=== PATIENT | female | born 1940 | race Caucasian/White ===

== ENCOUNTER 2017-01-20 15:59 | Inpatient (IN) | payer OTHER ==
--- NOTE | ~2017-01-20 | EKG ---
PATIENT: CHEYENNE OSBORN UNIT #: [id number] Ventricular Rate: 104 BPM Atrial Rate: 131 BPM QRS Duration: 76 ms Q-T Interval: 342 ms QTC Calculation(Bezet): 449 ms Calculated R [place]: -15 degrees Calculated T [place]: 100 degrees Diagnosis Line: Atrial fibrillation with rapid ventricular Diagnosis Line: response with premature ventricular or aberrantly Diagnosis Line: conducted complexes Diagnosis Line: Low voltage QRS Diagnosis Line: Cannot rule out Anteroseptal infarct (cited on or Diagnosis Line: before 20-JAN-2017) Diagnosis Line: Abnormal ECG Diagnosis Line: When compared with ECG of 14-NOV-2012 13:16, Diagnosis Line: Atrial fibrillation has replaced Sinus rhythm Diagnosis Line: Questionable change in initial forces of Anterior Diagnosis Line: leads Diagnosis Line: Nonspecific T wave abnormality now evident in Diagnosis Line: Lateral leads Diagnosis Line: Confirmed by RUDOLPH HAYS MD ([id number]) on 01/20/2017 Diagnosis Line: 4:17:31 PM INTERPRETING MD: SAÚL KEEN
--- NOTE | ~2017-01-20 | CT71 ---
[facility] A Service of [facility] RADIOLOGY TEXT RESULTS PATIENT: CHEYENNE OSBORN LOCATION: C5 [address] : 38 UNIT #: [id number] AGE: [address]: Rai Smith MD SEX: F ORDER DR: [id number] [facility] [address] [place], [place] [address] [id number] I MR#: [id number] Acc #: [id number] NAME: CHEYENNE OSBORN : 1940 SEX: F STUDY DATE/TIME: 01/20/2017 14:45 UNIT: CEDOF ROOM: 51125 STUDY DESCRIPTION: CT Head Wo Contrast Attending Physician: Rai Smith M.D. Ordering Physician: Raz Ames M.D. Primary Care Physician: Dottie Chavez M.D. MEDICAL IMAGING REPORT This report is preliminary unless electronic signature is present EXAM CT brain without contrast media. DATE OF EXAM 01/20/2017 COMPARISON 09/02/2011 HISTORY SUPPLIED Confused, disoriented and lethargic for 2 days. TECHNIQUE Transaxial imaging of the brain was performed without contrast media. NOTE: This CT exam was performed with one or more of the following radiation dose reduction techniques: automatic exposure control, adjustment of mA and/or kV according to patient size, and iterative reconstruction. FINDINGS There is generalized enlargement of the ventricles and CSF-containing spaces, not unusual for this patient's age and is certainly unchanged from the patient's previous study of 2010. No intra or extraaxial mass lesions, fluid collections or mass effect are seen. No focal areas of low attenuation or evidence of acute intracranial hemorrhage. There is chronic inflammatory disease within the sphenoid air cells. CONCLUSION 1. Generalized atrophy. No acute intracranial findings. 2. Chronic-appearing sphenoid sinus disease. Dictated by... Justin Ghotra M.D. [facility] A Service of [facility] RADIOLOGY TEXT RESULTS PATIENT: CHEYENNE OSBORN LOCATION: [facility] [address] : 38 UNIT #: [id number] AGE: [address]: Rai Smith MD SEX: F ORDER DR: THIS IS AN ELECTRONICALLY VERIFIED REPORT Justin Ghotra M.D. at 01/21/2017 2:53 PM ANTOINETTE/winston TD: 01/20/2017 19:08 JOB #: [id number] MEDICAL IMAGING REPORT COPY
--- NOTE | ~2017-01-20 | HP ---
Unit #: [id number] #: [id number] Patient: CHEYENNE OSBORN [id number] [address] [address] [id number] I MR#: [id number] NAME: CHEYENNE OSBORN ROOM: 567 Age: 76 Sex: F Admission Date: 01/20/2017 : 1940 Attending Physician: Rai Smith M.D. Primary Care Physician: Dottie Chavez M.D. HISTORY AND PHYSICAL DIAGNOSES ON ADMISSION 1. Acute urinary tract infection. 2. History of altered mental status. 3. Sepsis. HISTORY OF PRESENT ILLNESS 76-year-old female was transferred from [facility] with altered mental status. The patient is currently confused and not able to provide history. History was obtained from the nursing facility records. As per facility records, patient was very sleep and very confused. She woke up this morning and ate breakfast and took her medications and then she became sluggish. Because of her increased confusion and lethargy, it was decided to transfer her to the hospital. In the hospital, the patient was diagnosed with atrial fibrillation with rapid ventricular rate and acute UTI, possible pneumonia and it was decided to admit her. There is no history of chest pain. The patient is complaining of shortness of air. She is hard of hearing. She is confused to time. Patient is unable to provide reliable history; therefore, unable to do review of systems. PAST MEDICAL HISTORY 1. Hypertension. 2. Hyperlipidemia. 3. Gastroesophageal reflux disease. 4. Diverticulosis. 5. Hypothyroidism. 6. Irritable bowel syndrome. 7. CHF. 8. History of pacemaker. PAST SURGICAL HISTORY 1. Appendectomy. 2. Parathyroid surgery. 3. Hysterectomy. 4. Cholecystectomy. 5. Bladder surgery. 6. Back surgery. ALLERGIES The patient is allergic to multiple medications including iodine, IV dye, salicylates, tetracycline, sulfa drugs, macrolide, barium sulfate, Unit #: [id number] #: [id number] Patient: CHEYENNE OSBORN aspirin, erythromycin. SOCIAL HISTORY Patient is resident of [facility]. There is no history of smoking or drinking. FAMILY HISTORY As per old records, is positive for coronary artery disease and cancer. PHYSICAL EXAMINATION GENERAL: Patient is lying in bed, is pleasantly confused. Is not in any obvious acute distress. HEENT: No conjunctival congestion. Sclerae is not icteric. NECK: Supple. Trachea is central. RESPIRATORY EXAMINATION: Decreased breath sounds bilaterally. A few crackles present on both bases. HEART: Tachycardic and regular. S1, S2. ABDOMEN: Soft, obese. No obvious tenderness. EXTREMITIES: Patient had right lower extremity ulcer and erythema present. Patient had left extremity edema present. SKIN: Warm and dry. DIAGNOSTIC STUDIES LABORATORY: Labs on admission - patient's creatinine is 1.1, sodium 137, potassium is 5.0. AST and ALT within normal limits. Troponin is less than 0.05. WBC 6.8, hemoglobin is 11.1, platelet count is 163. Urine drug screen was negative. UA revealed 5 to 10 WBCs. Ammonia level was 43, lactic level was 1.2. CARDIOVASCULAR: EKG revealed atrial fibrillation. (1) 1 and 4. ASSESSMENT AND PLAN 76-year-old patient presented to the hospital with shortness of air and lethargy. 1. Sepsis. 2. Possible pneumonia: Patient's CT scan of chest has revealed opacity on the lower lobes. CT scan of abdomen was negative as per preliminary report. Therefore, patient is being treated with IV Rocephin. I will request Dr. Yao to see patient in consultation. 3. Acute urinary tract infection: Will do urine culture. Patient is on antibiotics. 4. Atrial fibrillation: Patient's rate is 104. She did not take her Cardizem in the facility. We will resume patient's home medication. 5. Patient is status post pacemaker. 6. Type 2 diabetes mellitus: Will do serial Accu-Cheks and will start patient on insulin sliding scale. 7. We will start patient on Protonix. 8. Patient is on Xarelto at home. We will continue patient's Xarelto. She is also on sotalol. Will continue that. 9. I will try to call patient's family. 10. Patient's overall prognosis is guarded. Patient has a state guardian as a legal guardian as per staff. Unit #: [id number] #: [id number] Patient: CHEYENNE OSBORN Dictated by Halle Eaton TD: 01/21/2017 07:58 JOB #: [id number] HISTORY AND PHYSICAL X Rai Smith MD HISTORY AND PHYSICAL
--- NOTE | ~2017-01-20 | CO ---
Unit #: [id number] #: [id number] Patient: CHEYENNE OSBORN [id number] [address] [address] [id number] I MR#: [id number] NAME: CHEYENNE OSBORN ROOM: 567 Age: 76 Sex: F Admission Date: 01/20/2017 : 1940 Attending Physician: Rai Smith M.D. Primary Care Physician: Dottie Chavez M.D. Consultation Date: 01/21/2017 CONSULTATION REPORT REASON FOR CONSULTATION Pneumonia. CHIEF COMPLAINT Cough and shortness of breath. HISTORY OF PRESENT ILLNESS Patient basically is a 76-year-old female with past medical history significant for obstructive sleep apnea, hypertension, dyslipidemia, diverticulosis, irritable bowel syndrome, congestive heart failure, history of pacemaker placement. Presents with the complaint of confusion, lethargy and was found to be short of breath. CT of the chest showed pneumonia. I am seeing her at the bedside complaining of shortness of breath. REVIEW OF SYSTEMS Positive pallor. No edema. No cyanosis. No jaundice. Rest is as per history of present illness. The rest of a 12-point review of systems has been reviewed and is negative. PAST MEDICAL HISTORY 1. Hypertension. 2. Dyslipidemia. 3. Gastroesophageal reflux disease. 4. Diverticulosis. 5. Hypothyroidism. 6. Irritable bowel syndrome. 7. CHF. 8. History of pacemaker placement. 9. Appendectomy. 10. Parathyroid surgery. 11. Hysterectomy. 12. Cholecystectomy. 13. Bladder surgery. 14. Back surgery. ALLERGIES Sulfa, tetracycline, IV dye, salicylate, barium, macrolide, aspirin, Erythromycin. SOCIAL HISTORY No history of smoking or drinking. FAMILY HISTORY Unit #: [id number] #: [id number] Patient: CHEYENNE OSBORN Positive for coronary artery disease and cancer. PHYSICAL EXAMINATION VITAL SIGNS: Temperature 98, pulse rate 70, respirations 12, blood pressure 130/70. NEUROLOGIC: Awake, alert and oriented. No neuro deficits. HEENT: PERRLA. EOMI. NECK: Supple. No JVD. CHEST: Bilateral air entry. Bilateral rhonchi. GI: Nontender. Soft. Bowel sounds positive. EXTREMITIES: No edema. SKIN: No rashes, no ulcer. LYMPHATIC: No lymphadenopathy. ASSESSMENT 1. Pneumonia. 2. Sepsis. 3. Urinary tract infection. 4. Atrial fibrillation. 5. History of pacemaker placement. 6. Likely obstructive sleep apnea. 7. Diabetes mellitus. PLAN Plan is to continue the patient on IV antibiotic, Rocephin. Continue anticoagulation. GI and DVT prophylaxis. Bronchodilator. Follow sputum culture. Order procalcitonin level. BiPAP at night. The patient will be closely monitored. Please see orders for detailed plan. Dictated by... Halle Temple/elton TD: 01/22/2017 13:19 JOB #: [id number] CONSULTATION REPORT X Zeenat Yao MD CONSULTATION REPORT
--- NOTE | ~2017-01-20 | CT4 ---
[facility] A Service of [facility] RADIOLOGY TEXT RESULTS PATIENT: CHEYENNE OSBORN LOCATION: [facility] 567-01 : 38 UNIT #: [id number] AGE: [address]: Rai Smith MD SEX: F ORDER DR: [id number] [facility] [address] [place], [place] [address] [id number] I MR#: [id number] Acc #: [id number] NAME: CHEYENNE OSBORN : 1940 SEX: F STUDY DATE/TIME: 01/20/2017 14:51 UNIT: CEDOF ROOM: 12975 STUDY DESCRIPTION: CT Abd and Pelv Wo Cont Attending Physician: Rai Smith M.D. Ordering Physician: Raz Ames M.D. Primary Care Physician: Dottie Chavez M.D. MEDICAL IMAGING REPORT This report is preliminary unless electronic signature is present EXAM CT of the abdomen and pelvis without contrast media. DATE OF EXAM 01/20/2017 HISTORY SUPPLIED Abdominal distension, shortness of breath for 2 days. TECHNIQUE Axial imaging of the abdomen and pelvis was performed without contrast media. NOTE: This CT exam was performed with one or more of the following radiation dose reduction techniques: automatic exposure control, adjustment of mA and/or kV according to patient size, and iterative reconstruction. COMPARISON The studies compared to that of October 24, 2013. FINDINGS The leads are present in the lung bases, in the right atrium and ventricle. There are small bilateral pleural effusions and basilar atelectasis. There is a small amount of ascites present. This is primarily perisplenic, and in the left pericolic gutter, but probably is positional. There is a small amount of right-sided perihepatic fluid. Redemonstrated is a nodular liver suggesting underlying chronic liver disease. Spleen is not enlarged. The gallbladder is not identified, and presumably absent. Right and left kidney are unremarkable. There is some very mild and subtle soft tissue stranding in the mesentery. The pancreas is largely atrophic. Patient does have anasarca which is new. The uterus is absent. No pelvic masses are seen. There is diverticulosis without diverticulitis. [facility] A Service of [facility] & [facility] RADIOLOGY TEXT RESULTS PATIENT: CHEYENNE OSBORN LOCATION: C5C 567-01 : 38 UNIT #: [id number] AGE: [address]: Rai Smith MD SEX: F ORDER DR: CONCLUSION 1. Bilateral pleural effusions with basilar atelectasis. 2. Cirrhotic-appearing liver unchanged. 3. Postop changes of prior cholecystectomy and hysterectomy. 4. Ascites. Predominantly perisplenic and in the left pericolic gutter which I think is probably related to position. There clearly is some perihepatic fluid as well. 5. Diffuse anasarca with some increased density in the mesentery which I think is also related more to anasarca. 6. Diverticulosis. No evidence of acute diverticulitis. Dictated by... Justin Ghotra M.D. THIS IS AN ELECTRONICALLY VERIFIED REPORT Justin Ghotra M.D. at 01/21/2017 2:53 PM ANTOINETTE/winston TD: 01/20/2017 19:58 JOB #: [id number] MEDICAL IMAGING REPORT COPY
--- NOTE | ~2017-01-20 | CT57 ---
[facility] A Service of [facility] RADIOLOGY TEXT RESULTS PATIENT: CHEYENNE OSBORN LOCATION: [facility] 567-01 : 38 UNIT #: [id number] AGE: [address]: Rai Smith MD SEX: F ORDER DR: [id number] [facility] [address] [place], [place] [address] [id number] E MR#: [id number] #: [id number] NAME: CHEYENNE OSBORN : 1940 SEX: F STUDY DATE/TIME: 01/20/2017 14:51 UNIT: [facility] ROOM: STUDY DESCRIPTION: CT Chest Wo Cont Attending Physician: Dalton Roe M.D. Ordering Physician: Raz Ames M.D. Primary Care Physician: Dottie Chavez M.D. MEDICAL IMAGING REPORT This report is preliminary unless electronic signature is present EXAM CT chest without contrast 01/20/2017 INDICATIONS Confusion and disorientation. Lethargy. Shortness of air for the past [address] of the chest. This CT exam was performed with one or more of the following radiation dose reduction techniques: automatic exposure control, adjustment of mA and/or kV according to patient size, and iterative reconstruction. COMPARISON 11/12/2016 FINDINGS Opacities in the left lung base are similar to the previous study. Opacity in the right lung base is minimally increased. These opacities could represent atelectasis or infiltrate. Nodular density right apex is stable. Nodular density in the right lower lobe is obscured by new atelectasis. There is no pneumothorax or pleural fluid. Large cardiomegaly. No adenopathy. There is anterior bowing of the posterior tracheal wall as well as some flattening of the right and left main bronchus. Suspect a nondisplaced fracture of the left twelfth rib. There is also some new irregularity of the posteromedial left eleventh rib. IMPRESSION 1. Persistent opacities in the left lung base with slightly increasing opacity in the right lower lobe. It is most in keeping with atelectasis. Correlate for the possibility of pneumonia. 2. Nodular densities in the apex is unchanged and the 1 in the right STS. [facility] A Service of [facility] RADIOLOGY TEXT RESULTS PATIENT: CHEYENNE OSBORN LOCATION: C5C 567-01 : 38 UNIT #: [id number] AGE: [address]: Rai Smith MD SEX: F ORDER DR: lower lobe is obscured by atelectasis. 3. Findings suggesting tracheobronchial malacia. 4. Cardiomegaly. 5. Suspected nondisplaced fracture of the left twelfth rib and irregularity in the posteromedial left eleventh rib which may also reflect changes of fracture. These are new compared with the previous CT. 6. Refer to the separately dictated abdomen and pelvis CT for findings below the diaphragm. Dictated by... Luis Carlos Weiner M.D. THIS IS AN ELECTRONICALLY VERIFIED REPORT Luis Carlos Weiner M.D. at 01/21/2017 7:05 AM Liz TD: 01/20/2017 18:54 JOB #: [id number] MEDICAL IMAGING REPORT COPY
--- NOTE | ~2017-01-20 | DS ---
Unit #: [id number] #: [id number] Patient: CHEYENNE OSBORN [id number] [address] [address] [id number] I MR#: [id number] NAME: CHEYENNE OSBORN ROOM: 567 Age: 76 Sex: F Admission Date: 01/20/2017 : 1940 Discharge Date: Attending Physician: Rai Smith M.D. Primary Care Physician: Dottie Chavez M.D. DISCHARGE SUMMARY PRIMARY DIAGNOSIS Pneumonia, possible. SECONDARY DIAGNOSES 1. Escherichia coli urinary tract infection. 2. Acute respiratory failure, improved. 3. Anasarca. 4. Cirrhosis. 5. Morbid obesity. 6. Sepsis secondary to urinary tract infection and possibly related to pneumonia. 7. Possible 12th rib fracture. 8. Bilateral pleural effusions. HOSPITAL COURSE The patient was admitted to the hospital and was noted to be chronically weak and is chronically needs significant assistance for physical therapy at her rehab facility. Her urine grew out E coli, which is resistant to Levaquin and there was suspicion of a possible infiltrate on her chest x-ray, although, she had no fever and no elevation in her white blood cell count. She was seen by Pulmonology and she was continued on Rocephin both for her UTI and her possible pneumonia. Procalcitonin level was fairly low at 0.09. The patient will continue on Omnicef for an additional 6 days. The patient also had CT scanning of the abdomen and pelvis while she was here, which showed some chronic cirrhosis and unchanged compared to previous imaging and ascites as well as diffuse anasarca. She was started on scheduled Lasix to assist with this. DISCHARGE DISPOSITION Back to her long-term care/rehab. DISCHARGE STATUS Stable. DISCHARGE ACTIVITY With assistance only. DISCHARGE DIET Diabetic 2 g sodium per day, maximum 2000 calorie per day maximum diet. FOLLOWUP Unit #: [id number] #: [id number] Patient: CHEYENNE OSBORN Follow up is with her PCP in 2 to 4 weeks. Consultants during this hospitalization include Dr. Yao with Pulmonology. Dictated by... Ren Segovia M.D. REZA/peggy TD: 01/24/2017 01:15 JOB #: [id number] DISCHARGE SUMMARY X Ren Segovia MD X DISCHARGE SUMMARY
--- NOTE | ~2017-01-20 | DS ---
Unit #: [id number] #: [id number] Patient: CHEYENNE OSBORN [id number] [address] [address] [id number] I MR#: [id number] NAME: CHEYENNE OSBORN ROOM: 241 Age: 76 Sex: F Admission Date: 01/20/2017 : 1940 Discharge Date: 01/27/2017 Attending Physician: Elsie Velez M.D. Primary Care Physician: Dottie Chavez M.D. DISCHARGE SUMMARY ADDENDUM DISCHARGE DIAGNOSES Please add: 1. Dementia. 2. Morbid obesity. 3. Chronic hypoxic respiratory failure maintained on 2 liters of oxygen per nasal cannula continuously. 4. Pneumonia. 5. Severe deconditioning. HOSPITAL COURSE Patient remained stable since last dictation. She was changed to oral Omnicef for her pneumonia and UTI and has been doing well. Unfortunately, she is significantly deconditioned even in the short period in which she was here and will be transitioned to rehab with plans to transition to long-term care. I will note patient has chronic hypoxia as noted on prior discharge summary and should be maintained on 2 liters of oxygen per nasal cannula continuously. DISCHARGE CONDITION Stable. DISCHARGE STATUS Discharged to rehab. DISCHARGE MEDICATIONS Per med rec. Patient will complete a course of Omnicef on January 28, 2017. Otherwise, meds are as noted. DISCHARGE INSTRUCTIONS Also as previously noted. She can increase her activity as tolerated. Dictated by... Elsie Velez M.D. TALAT/jaqui TD: 01/28/2017 10:42 JOB #: [id number] Unit #: [id number] #: [id number] Patient: CHEYENNE OSBORN DISCHARGE SUMMARY Page 1 of 1 X Elsie Velez MD X DISCHARGE SUMMARY
--- NOTE | ~2017-01-20 | DS ---
Unit #: [id number] #: [id number] Patient: CHEYENNE OSBORN [id number] [address] [address] [id number] I MR#: [id number] NAME: CHEYENNE OSBORN ROOM: 567 Age: 76 Sex: F Admission Date: 01/20/2017 : 1940 Discharge Date: Attending Physician: Rai Smith M.D. Primary Care Physician: Dottie Chavez M.D. DISCHARGE SUMMARY ADDENDUM The patient's diagnosis of acute hypoxemic respiratory failure should be changed to acute on chronic hypoxemic respiratory failure. The patient is chronically on 2 L of oxygen by nasal cannula per my discussion with the RN at [facility]. 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 Dictated by... Halle Alanis/belia TD: 01/24/2017 12:36 JOB #: [id number] DISCHARGE SUMMARY X Ren Segovia MD X DISCHARGE SUMMARY
[2017-01-20 14:38] LABS: BASOPHIL% 0.6 % (0-2.5); EOSINOPHIL# 0.1 X10e3 (0-0.7); EOSINOPHIL% 2.1 % (0.0-7.0); HEMATOCRIT 35.5 % (35.0-45.0); HEMOGLOBIN 11.1 gm/dL (12.0-16.0); LYMPHOCYTE# 0.7 X10e3 (1.0-3.5); LYMPHOCYTE% 10.7 % (17.0-45.0); MEAN CELL VOLUME 87.1 FL (83-96); MEAN CORPUSCULAR HEMOGLOBIN 27.1 PG (28-34); MEAN CORPUSCULAR HGB CONC 31.2 g/dL (30-36); MEAN PLATELET VOLUME 8.4 FL (6.5-11.5); MONOCYTE# 0.6 X10e3 (0-1.0); MONOCYTE% 8.5 % (3.0-12.0); NEUTROPHIL# 5.3 X10e3 (1.5-7.1); NEUTROPHIL% 78.1 % (40-75); PLATELET COUNT 163 X10e3 (140-420); RED BLOOD COUNT 4.08 X10e (3.90-5.30); RED CELL DISTRIBUTION WIDTH 16.1 % (11.0-15.5); WHITE BLOOD COUNT 6.8 X10e3 (4.0-10.5)
[2017-01-20 14:39] LABS: DIFF IND NO
[2017-01-20 14:49] LABS: INR 1.8; PARTIAL THROMBOPLASTIN TIME 35.2 SECONDS (23.5-31.3); PROTHROMBIN TIME (PATIENT) 19.4 SECONDS (9.6-11.5)
[2017-01-20 15:03] LABS: ALBUMIN SERUM 3.3 g/dL (3.5-5.0); ALKALINE PHOSPHATASE 91 U/L (32-92); ALT (SGPT) 12 U/L (10-40); AST (SGOT) 17 U/L (10-42); BILIRUBIN, DIRECT 0.2 mg/dL (0.0-0.2); BILIRUBIN,INDIRECT 0.5 mg/dL (0.0-0.9); BILIRUBIN,TOTAL 0.7 mg/dL (0.2-2.0); BLOOD UREA NITROGEN 30 mg/dL (9-23); BUN/CREATININE RATIO 27.27; CALCIUM SERUM 9.5 mg/dL (8.4-10.2); CARBON DIOXIDE 26 mmol/L (22-31); CHLORIDE 105 mmol/L (100-111); CREATININE SERUM 1.1 mg/dL (0.6-1.4); GLOM FILT RATE Estimated 51.1 mL/min (>60); GLUCOSE FASTING 127 mg/dL (70-110); PROTEIN TOTAL SERUM 6.1 g/dL (6.0-8.3); SALICYLATE <4.0 mg/dL; SODIUM 137 mmol/L (135-145)
[2017-01-20 15:04] LABS: ACETAMINOPHEN <10 ug/mL; ALCOHOL BLOOD <5 mg/dL (0)
[2017-01-20 15:46] LABS: POC - CKMB 1.5 ng/mL (0.0-7.9); POC - TROPONIN <0.05 ng/mL (<=0.05)
[~2017-01-20 15:59] MED LIST: ACETAMINOPHEN PO; ADVAIR 250-501 EACH IH; BENTYL20 MG PO; CALCIUM + D 6001 TA1 PO; COLACE PO; CYMBALTA PO; DILAUDID4 MG PO; DIOVAN160 MG PO; FENTANYL1 EAC1 TD; FERROUS SULFATE1 TAB PO; FISH OIL 1,0001 CAP PO; GLUCOTROL10 MG PO; JANUVIA PO; LASIX20 MG PO; LEVOTHROID75 MCG PO; MAG-OX 400400 MG PO; MELADOX3 MG PO; MULTI-VITAMIN1 EAC1 PO; NEURONTIN PO; PRILOSEC PO; SOTALOL AF80 MG PO; VIIBRYD10 MG PO; VITAMIN B650 MG PO; VITAMIN C500 M5 PO; VITAMIN D35000 UNIT PO; XARELTO15 MG PO; [UNRECOGNIZED DRUG - OTHER]
[2017-01-20 16:02] LABS: URINE SOURCE CLEAN CATCH
[2017-01-20 16:06] LABS: URINE APPEARANCE CLEAR; URINE BILIRUBIN NEG (NEG); URINE BLOOD NEG (NEG); URINE COLOR YELLOW; URINE GLUCOSE NEG (NEG); URINE KETONE NEG (NEG); URINE LEUKOCYTE ESTERASE TRACE (NEG); URINE NITRATE NEG (NEG); URINE PH 5.5 (5-8); URINE PROTEIN 1+ (NEG); URINE SPECIFIC GRAVITY 1.034 (1.003-1.035)
[2017-01-20 16:09] LABS: CULTURE INDICATED? YES; URBCS1 AUWI 0-2 /[HPF] (0-2); URINE BACTERIA AUWI NEG (NEGATIVE); URINE SQUAMOUS EPITHELIAL CELL OCC /[HPF]
[2017-01-20 16:10] LABS: U HYALINE CASTS AUWI 0-2 /[LPF]
[2017-01-20 16:44] LABS: AMPHETAMINE NEG (NEG); BARBITURATES NEG (NEG); BENZODIAZEPINES NEG (NEG); COCAINE NEG (NEG); MARIJUANA NEG (NEG); OPIATES NEG (NEG); TRICYCLIC ANTIDEPRESSANTS NEG (NEG); U METHADONE NEG (NEG)
[2017-01-20] MEDS ORDERED: CARDIZEM CD120 M1 PO (18:31)
[2017-01-20] MEDS ORDERED: IPRATR-ALBUTEROL3 ML INH (18:41)
[2017-01-20] MEDS ORDERED: DULOXETINE HCL60 MG PO (18:42)
[2017-01-20] MEDS ORDERED: VITAMIN D250000 UNIT PO (18:42)
[2017-01-20] MEDS ORDERED: LANSOPRAZOLE30 M2 PO (18:45)
[2017-01-20] MEDS ORDERED: FLONASE ALLERG9.9 ML (18:45)
[2017-01-20] MEDS ORDERED: ACIDOPHILUS1 CA1 PO (18:46)
[2017-01-20] MEDS ORDERED: METHIMAZOLE5 MG PO (18:46)
[2017-01-20] MEDS ORDERED: XARELTO15 MG PO (18:46)
[2017-01-20] MEDS ORDERED: GAVILAX17 GM PO (18:47)
[2017-01-20] MEDS ORDERED: SYMBICORT 80-10.2 GM INH (18:48)
[2017-01-20] MEDS ORDERED: SOTALOL160 MG PO (18:48)
[2017-01-20] MEDS ORDERED: MIRAPEX1 MG PO (18:49)
[2017-01-20] MEDS ORDERED: MIRALAX17 G2 PO (18:50)
[2017-01-20] MEDS ORDERED: MILK OF MAGNESIA PO (18:51)
[2017-01-20] MEDS ORDERED: IPRAT-ALBUT 0.5-3 ML INH (18:52)
[2017-01-20] MEDS ORDERED: NOVOLOG100 UNITS/ TL (18:53)
[2017-01-20] MEDS ORDERED: MUPIROCIN0.9 GM (18:55)
[2017-01-20] MEDS ORDERED: NYSTATIN1 EAC1 TD (18:58)
[2017-01-20 19:11] LABS: POC - CKMB 1.1 ng/mL (0.0-7.9); POC - TROPONIN <0.05 ng/mL (<=0.05)
[2017-01-21 05:23] LABS: BASOPHIL% 0.7 % (0-2.5); EOSINOPHIL# 0.1 X10e3 (0-0.7); EOSINOPHIL% 2.2 % (0.0-7.0); HEMATOCRIT 35.9 % (35.0-45.0); HEMOGLOBIN 11.2 gm/dL (12.0-16.0); LYMPHOCYTE# 0.8 X10e3 (1.0-3.5); LYMPHOCYTE% 13.2 % (17.0-45.0); MEAN CELL VOLUME 87.5 FL (83-96); MEAN CORPUSCULAR HEMOGLOBIN 27.3 PG (28-34); MEAN CORPUSCULAR HGB CONC 31.2 g/dL (30-36); MEAN PLATELET VOLUME 8.7 FL (6.5-11.5); MONOCYTE# 0.6 X10e3 (0-1.0); MONOCYTE% 9.6 % (3.0-12.0); NEUTROPHIL# 4.3 X10e3 (1.5-7.1); NEUTROPHIL% 74.3 % (40-75); PLATELET COUNT 157 X10e3 (140-420); RED CELL DISTRIBUTION WIDTH 16.3 % (11.0-15.5); WHITE BLOOD COUNT 5.8 X10e3 (4.0-10.5)
[2017-01-21 05:28] LABS: DIFF IND NO
[2017-01-21 06:12] LABS: BLOOD UREA NITROGEN 29 mg/dL (9-23); BUN/CREATININE RATIO 32.22; CALCIUM SERUM 9.3 mg/dL (8.4-10.2); CARBON DIOXIDE 25 mmol/L (22-31); CHLORIDE 107 mmol/L (100-111); CREATININE SERUM 0.9 mg/dL (0.6-1.4); GLOM FILT RATE Estimated ABOVE60 mL/min (>60); GLUCOSE FASTING 123 mg/dL (70-110); POTASSIUM 4.9 mmol/L (3.5-5.1); SODIUM 140 mmol/L (135-145)
[2017-01-21 06:24] LABS: THYROID STIMULATING HORMONE 2.19 uIU/ml (0.34-5.60)
[2017-01-21 06:27] LABS: FREE THYROXIN (T4) 0.95 ng/dL (0.58-1.64)
[2017-01-21 06:29] LABS: FREE T3 2.4 pg/mL (2.5-3.9)
[2017-01-22 06:57] LABS: LEGIONELLA AG URINE NEG (NEG)
[2017-01-22 12:39] LABS: ARTERIAL BLD GAS O2 SATURATION 96.3 % (90.0-100.0); ARTERIAL BLOOD GAS CARBOXY HB 0.6 %sat (0.0-9.0); ARTERIAL BLOOD GAS HCO3 22.7 mmol/L; ARTERIAL BLOOD GAS MET HB 0.7 %sat (0.0-2.0); ARTERIAL BLOOD GAS PCO2 41.8 mmHg (35.0-45.0); ARTERIAL BLOOD GAS PO2 94.5 mmHg (80.0-100); ARTERIAL BLOOD GAS pH 7.343 (7.350-7.450)
[2017-01-22 12:41] LABS: ARTERIAL BLOOD GAS ALLEN TEST NORMAL; ARTERIAL BLOOD GAS ART SITE RIGHT RADIAL; ARTERIAL BLOOD GAS DELIVERY NASAL CANNULA; ARTERIAL DRAW? YES
[2017-01-23 08:12] LABS: HEMATOCRIT 36.9 % (35.0-45.0); HEMOGLOBIN 11.4 gm/dL (12.0-16.0); MEAN CELL VOLUME 88.5 FL (83-96); MEAN CORPUSCULAR HEMOGLOBIN 27.3 PG (28-34); MEAN CORPUSCULAR HGB CONC 30.8 g/dL (30-36); MEAN PLATELET VOLUME 8.6 FL (6.5-11.5); RED BLOOD COUNT 4.17 X10e (3.90-5.30); RED CELL DISTRIBUTION WIDTH 16.5 % (11.0-15.5); WHITE BLOOD COUNT 7.4 X10e3 (4.0-10.5)
[2017-01-23 08:45] LABS: BLOOD UREA NITROGEN 28 mg/dL (9-23); CALCIUM SERUM 8.8 mg/dL (8.4-10.2); CARBON DIOXIDE 22 mmol/L (22-31); CHLORIDE 109 mmol/L (100-111); CREATININE SERUM 0.8 mg/dL (0.6-1.4); GLOM FILT RATE Estimated ABOVE60 mL/min (>60); GLUCOSE FASTING 132 mg/dL (70-110); POTASSIUM 5.2 mmol/L (3.5-5.1); SODIUM 134 mmol/L (135-145)
[2017-01-25 08:11] LABS: HEMATOCRIT 35.6 % (35.0-45.0); HEMOGLOBIN 11.2 gm/dL (12.0-16.0); MEAN CELL VOLUME 87.2 FL (83-96); MEAN CORPUSCULAR HEMOGLOBIN 27.5 PG (28-34); MEAN CORPUSCULAR HGB CONC 31.6 g/dL (30-36); MEAN PLATELET VOLUME 8.6 FL (6.5-11.5); RED BLOOD COUNT 4.08 X10e (3.90-5.30); RED CELL DISTRIBUTION WIDTH 16.1 % (11.0-15.5); WHITE BLOOD COUNT 7.3 X10e3 (4.0-10.5)
[2017-01-25 08:52] LABS: ALBUMIN SERUM 2.9 g/dL (3.5-5.0); BILIRUBIN,TOTAL 0.4 mg/dL (0.2-2.0); CALCIUM SERUM 8.7 mg/dL (8.4-10.2); MAGNESIUM 1.9 mg/dL (1.6-3.0); POTASSIUM 4.3 mmol/L (3.5-5.1); PROTEIN TOTAL SERUM 5.8 g/dL (6.0-8.3)
[2017-01-25] MEDS ORDERED: OMNICEF300 M1 PO (12:27)
[2017-01-25] MEDS ORDERED: BUMEX1 MG PO (12:28)
[2017-01-27 08:54] LABS: BUN/CREATININE RATIO 22.72; CALCIUM SERUM 8.7 mg/dL (8.4-10.2); CREATININE SERUM 1.1 mg/dL (0.6-1.4); GLOM FILT RATE Estimated 51.1 mL/min (>60); POTASSIUM 3.8 mmol/L (3.5-5.1)
== END 2017-01-27 23:14 | DRG 871 ==
LOC: CED 15:59 → CEDOF 17:40 → C5C 21:54 → C2A 01-26 22:02
PROVIDERS: Emergency Medicine; Internal Medicine
DX: A41.51 Sepsis due to Escherichia coli [E. coli] (principal); J18.9 Pneumonia, unspecified organism; J96.21 Acute and chronic respiratory failure with hypoxia; G92 Toxic encephalopathy; N39.0 Urinary tract infection, site not specified; E11.9 Type 2 diabetes mellitus without complications; F03.90 Unspecified dementia, unspecified severity, without behavioral disturbance, psychotic disturbance, mood disturbance, and anxiety; I48.2 Chronic atrial fibrillation; B96.20 Unspecified Escherichia coli [E. coli] as the cause of diseases classified elsewhere; S22.32XA Fracture of one rib, left side, initial encounter for closed fracture; E66.01 Morbid (severe) obesity due to excess calories; Z68.37 Body mass index [BMI] 37.0-37.9, adult; G25.81 Restless legs syndrome; M81.0 Age-related osteoporosis without current pathological fracture; Z90.49 Acquired absence of other specified parts of digestive tract; Z90.710 Acquired absence of both cervix and uterus; Z82.49 Family history of ischemic heart disease and other diseases of the circulatory system; Z80.9 Family history of malignant neoplasm, unspecified; Z82.3 Family history of stroke; Z79.01 Long term (current) use of anticoagulants; Z88.1 Allergy status to other antibiotic agents; Z88.2 Allergy status to sulfonamides; Z88.6 Allergy status to analgesic agent; Z91.041 Radiographic dye allergy status
CPT/HCPCS: 36415; 36600; 70450; 71250; 74176; 80048; 80053; 80076; 80307; 81003; 82140; 82308; 82553; 82607; 82803; 82947; 83605; 83735; 83880; 84439; 84443; 84481; 84484; 84550; 85025; 85027; 85610; 85652; 85730; 86140; 87040; 87086; 87088; 87186; 87449; 87899; 92526; 92610; 93005; 94640; 94660; 94760; 97110; 97163; 97164; 97530; 99285; C9113; G0480; G8978-GP; G8979-GP; G8980-GP; G8996-GN; G8997-GN; G8998-GN; J0696; J1815

== ENCOUNTER 2017-01-31 06:59 | Inpatient (IN) | payer OTHER ==
--- NOTE | ~2017-01-31 | EKG ---
PATIENT: CHEYENNE OSBORN UNIT #: [id number] Ventricular Rate: 124 BPM Atrial Rate: 44 BPM QRS Duration: 78 ms Q-T Interval: 276 ms QTC Calculation(Bezet): 396 ms Calculated R [place]: -27 degrees Calculated T [place]: 68 degrees Diagnosis Line: Atrial fibrillation with rapid ventricular Diagnosis Line: response Diagnosis Line: Low voltage QRS Diagnosis Line: Cannot rule out Anterior infarct , age Diagnosis Line: undetermined Diagnosis Line: Abnormal ECG Diagnosis Line: When compared with ECG of 31-JAN-2017 06:33, Diagnosis Line: Minimal criteria for Anterior infarct are now Diagnosis Line: Present Diagnosis Line: Non-specific change in ST segment in Anterior Diagnosis Line: leads Diagnosis Line: Confirmed by RUDOLPH HAYS MD ([id number]) on 02/03/2017 Diagnosis Line: 9:20:45 PM INTERPRETING MD: SAÚL KEEN
--- NOTE | ~2017-01-31 | US77 ---
[facility] A Service of [facility] RADIOLOGY TEXT RESULTS PATIENT: CHEYENNE OSBORN LOCATION: [address]16 : 38 UNIT #: [id number] AGE: [address]: Elsie Velez MD SEX: F ORDER DR: [id number] [facility] [address] [place], [place] [address] [id number] I MR#: [id number] Acc #: [id number] NAME: CHEYENNE OSBORN : 1940 SEX: F STUDY DATE/TIME: 02/03/2017 16:24 UNIT: [facility] ROOM: [facility] STUDY DESCRIPTION: US Kidney Bilateral Complete Attending Physician: Elsie Velez M.D. Ordering Physician: Saige Zavala M.D. Primary Care Physician: Dottie Chavez M.D. MEDICAL IMAGING REPORT This report is preliminary unless electronic signature is present EXAM Bilateral renal ultrasound HISTORY Acute renal failure. Hypertension. Elevated creatinine. FINDINGS Ultrasound examination of both kidneys demonstrates no hydronephrosis. No solid renal mass. There is a 9 mm simple cyst in the upper pole right kidney. No focal renal atrophy. Small amount of ascites. The urinary bladder is not visible and is decompressed by Kwan a catheter. IMPRESSION 1. No hydronephrosis. 2. There is a 9 mm incidental simple cyst in the upper pole of the right kidney. 3. Small amount of ascites. 4. Urinary bladder is decompressed by a Kwan catheter. Dictated by... Manolo Parmar M.D. THIS IS AN ELECTRONICALLY VERIFIED REPORT Manolo Parmar M.D. at 02/03/2017 11:26 PM DFL/to TD: 02/03/2017 18:53 JOB #: [id number] MEDICAL IMAGING REPORT Page 1 of 1 COPY
--- NOTE | ~2017-01-31 | CR72 ---
[facility] A Service of [facility] RADIOLOGY TEXT RESULTS PATIENT: CHEYENNE OSBORN LOCATION: [address]16 : [birth year] UNIT #: [id number] AGE: [address]: Elsie Velez MD SEX: F ORDER DR: [id number] [facility] [address] [place], [place] [address] [id number] MR#: [id number] Acc #: [id number] NAME: CHEYENNE OSBORN : 1940 SEX: F STUDY DATE/TIME: 02/08/2017 4:17 UNIT: [facility] ROOM: [facility] STUDY DESCRIPTION: CR Chest Single View Portable Attending Physician: Elsie Velez M.D. Ordering Physician: Zeenat Yao M.D. Primary Care Physician: Dottie Chavez M.D. MEDICAL IMAGING REPORT This report is preliminary unless electronic signature is present EXAM Portable chest INDICATION Respiratory failure PROCEDURE Frontal view chest COMPARISON 02/07/2017 FINDINGS Heart size unchanged. Patchy opacities throughout both lungs is stable. Support and monitoring devices not appreciably changed. IMPRESSION Stable chest. Dictated by... Luis Carlos Weiner M.D. THIS IS AN ELECTRONICALLY VERIFIED REPORT Luis Carlos Weiner M.D. at 02/08/2017 9:56 PM Fermin TD: 02/08/2017 08:32 JOB #: [id number] MEDICAL IMAGING REPORT Page 1 of 1 COPY
--- NOTE | ~2017-01-31 | CR72 ---
[facility] A Service of [facility] & [facility] RADIOLOGY TEXT RESULTS PATIENT: CHEYENNE OSBORN LOCATION: [address]16 : [birth year] UNIT #: [id number] AGE: [address]: Elsie Velez MD SEX: F ORDER DR: [id number] [facility] [address] [place], [place] [address] [id number] I MR#: [id number] Acc #: [id number] NAME: CHEYENNE OSBORN : 1940 SEX: F STUDY DATE/TIME: 02/06/2017 5:09 UNIT: [facility] ROOM: [facility] STUDY DESCRIPTION: CR Chest Single View Portable Attending Physician: Elsie Velez M.D. Ordering Physician: Zeenat Yao M.D. Primary Care Physician: Dottie Chavez M.D. MEDICAL IMAGING REPORT This report is preliminary unless electronic signature is present EXAM Portable chest, 02/06/2017 HISTORY Respiratory failure for 4 days. COMPARISON Chest, 02/05/2017 FINDINGS Frontal chest demonstrates tubes and lines in stable position. No visible pneumothorax. No significant change in patchy bilateral pulmonary opacities. Heart size and mediastinum stable. Left-sided pacing complex. IMPRESSION 1. Tubes and lines stable. No visible pneumothorax. 2. No significant change in diffuse patchy bilateral pulmonary opacities. Dictated by... Jayro Cohen M.D. THIS IS AN ELECTRONICALLY VERIFIED REPORT Jayro Cohen M.D. at 02/06/2017 11:29 PM Stas TD: 02/06/2017 15:59 JOB #: [id number] MEDICAL IMAGING REPORT Page 1 of 1 COPY
--- NOTE | ~2017-01-31 | CO ---
Unit #: [id number] #: [id number] Patient: CHEYENNE OSBORN [id number] [facility]. [place], [place] [address] [id number] Rashid MR#: [id number] NAME: CHEYENNE OSBORN ROOM: [facility] Age: 76 Sex: F Admission Date: 01/31/2017 : 1940 Attending Physician: Elsie Velez M.D. Primary Care Physician: Dottie Chavez M.D. CONSULTATION REPORT CODE BLUE NOTE DATE 02/03/2017 One of the CNAs noted the patient to be cyanotic early this morning, and a code was called about 2:27 a.m. When the ER physician arrived, the patient still had a pulse. He intubated the patient. She briefly lost her pulse but responded and was resuscitated after two rounds of epinephrine and CPR. I was called to see the patient stat. When I arrived, the patient was making some respiratory effort but was really unresponsive. Heart rate was 120s in A-fib with a systolic blood pressure of 160. Her Accu-Chek was 140. On examination, her pupils did react. She had decreased breath sounds. Cardiac examination revealed tachy S1, S2. Her abdomen was distended with no bowel sounds. No edema noted in her extremities. Her neurologic examination - she was unresponsive although was making respiratory effort, and her pupils did react. Chest x-ray shows white-out of the right lung and I am awaiting the radiologist's formal reading. Her EKG shows her chronic atrial fibrillation, heart rate about 124 or so. ASSESSMENT 1. Respiratory failure/arrest, now resuscitated: Patient was initially admitted 01/31/2017 for healthcare-associated pneumonia. 2. Atrial fibrillation/sick sinus syndrome, on Xarelto, status post permanent pacemaker with history of diastolic congestive heart failure: Cardiac catheterization revealed normal coronary arteries. 3. Hypertension: Patient now is being hypotensive. 4. Adult onset diabetes mellitus. 5. Hyperthyroidism. PLANS 1. Await formal chest x-ray reading, obtain an ABG. 2. Obtain stat labs including usual labs, BNP, cardiac enzymes, lactic acid and will ask for a type and screen as patient is anticoagulated. 3. Sputum C and S. 4. Lead Embedded Software Engineer consultation. 5. Bolus with IV fluids given that patient is hypotensive as I am seeing her in the ICU, and start pressors if needed. Unit #: [id number] #: [id number] Patient: CHEYENNE OSBORN 6. Add dextrose to IV fluids and change insulin to sliding scale. 7. NG-tube. 8. I attempted to reach a contact number, who is a friend of the patient. They did tell me that the patient has a POA, Ivet Jurado, at [phone]. I called that number but it only goes o voicemail. The 5B/5C nurses did leave a message for the POA to call us. 9. Prognosis is guarded. Dictated by... Tatiana Jackson M.D. AML/df TD: 02/03/2017 07:03 JOB #: [id number] CONSULTATION REPORT Page 1 of 1 X Tatiana Jackson MD X CONSULTATION REPORT
--- NOTE | ~2017-01-31 | CO ---
Unit #: [id number] #: [id number] Patient: CHEYENNE OSBORN [id number] [facility]. [place], [place] [address] [id number] I MR#: [id number] NAME: CHEYENNE OSBORN ROOM: [facility] Age: 76 Sex: F Admission Date: 01/31/2017 : 1940 Attending Physician: Elsie Velez M.D. Primary Care Physician: Dottie Chavez M.D. CONSULTATION REPORT REASON FOR CONSULTATION Critical care management. CHIEF COMPLAINT Shortness of breath. HISTORY OF PRESENT ILLNESS This patient basically was recently admitted, discharged to rehab, came back with shortness of breath, was admitted with pneumonia with bilateral infiltrate and atypical pulmonary edema, started on IV antibiotics and IV diuretics. Last night a code blue was called. The patient was found by FERRYBOAT DECKHAND in respiratory distress with blue lips. The patient still had a pulse and was intubated and lost her pulse after that and was resuscitated. I am seeing the patient at the bedside. She is currently intubated, sedated. REVIEW OF SYSTEMS Unobtainable. PHYSICAL EXAMINATION VITAL SIGNS: Temperature currently is 99, pulse 121, blood pressure 89/52, oxygen saturation 97%. NEUROLOGIC: Sedated. CVS: S1, S2. RESPIRATORY: Bilateral air entry. Bilateral mild rhonchi. GI: Nontender. Soft. Bowel sounds positive. EXTREMITIES: No edema. DIAGNOSTIC STUDIES LABS: Blood gas - pH of 7.41, pCO2 34, pO2 80. Her creatinine is 1.7, BUN 43, sodium 136, potassium 4.3. Lactic acid 5.3. INR 1.9. White count is 13, hemoglobin 10, hematocrit 35, platelet count 241. Her troponin is 0.14. IMAGING: Chest x-ray showed possible right-sided aspiration. ASSESSMENT 1. Acute hypoxic respiratory failure. 2. Severe ARDS. 3. Acute exacerbation of likely congestive heart failure. 4. Questionable pneumonia. 5. Acute kidney injury. 6. Critically ill patient. PLAN Unit #: [id number] #: [id number] Patient: CHEYENNE OSBORN Plan is to continue the patient on broad-spectrum IV antibiotics. Continue amiodarone. Cardiology consultation has been requested. We will monitor labs, continue ventilator support, sedation protocol. GI and DVT prophylaxis. Patient will be closely monitored. Please see orders for detailed plan. NOTE: Total critical care time is 95 minutes in entire critical care of this patient. Thank you very much for this consultation. Dictated by... Halle Temple TD: 02/03/2017 08:56 JOB #: [id number] CONSULTATION REPORT Page 1 of 1 X Zeenat Yao MD X CONSULTATION REPORT
--- NOTE | ~2017-01-31 | CO ---
Unit #: [id number] #: [id number] Patient: CHEYENNE OSBORN [id number] [place], [place] [address] [id number] I MR#: [id number] NAME: CHEYENNE OSBORN ROOM: 576 Age: 76 Sex: F Admission Date: 01/31/2017 : 1940 Attending Physician: Elsie Velez M.D. Primary Care Physician: Dottie Chavez M.D. Consultation Date: 02/01/2017 CONSULTATION REPORT REASON FOR CONSULTATION Volume overload. HISTORY OF PRESENT ILLNESS The patient is a 76-year-old female who is typically followed by [facility]. She follows with Dr. Vivek Delgadillo. Records indicate that she had a right and left heart cath in October 2011 that showed normal coronaries and an EF of 70%. In June 2011, she had a Medtronic permanent pacemaker placed. In July 2014, she had a Lexiscan Cardiolite stress test which was negative and most recently, in November 2016, she had a 2D echocardiogram that was a technically difficult study. She had pseudonormalization with EF of 60%, mild global hypokinesis, moderate TR, RVSP 40 to 50 mmHg, dilated IVC and RA 15 to 20 mmHg. Additional past medical history includes atrial fibrillation, sick sinus syndrome with chronic diastolic CHF with volume overload, hypertension, hyperlipidemia, diabetes, history of bladder cancer, history of goiter, urinary tract infection, obstructive sleep apnea. She is a nonsmoker. The patient, herself, is a poor historian. Much of my information has come from chart review. The patient was recently discharged from [facility] with pneumonia but was brought to our emergency department. She was found to be hypoxic. Chest x-ray showed bilateral infiltrates concerning for middle lobe infiltrate versus atypical pulmonary edema. The patient denies any nausea, vomiting, fever, chills or chest pain. Cardiology was consulted for volume overload and possible edema. Her point of care troponin was less than 0.05. Her BNP was found to be 506. EKG shows atrial fibrillation. PAST MEDICAL HISTORY 1. October 20, 2011 - right and left heart cath with normal coronaries with an EF of 70%. 2. November 12, 2016 - 2D echocardiogram was a technically difficult study. Pseudonormalization with EF of 60%, mild global LV hypokinesis, moderate TR, RVSP 40 to 50 mmHg, dilated IVC, RA 15 to 20 mmHg. This was read by Dr. Key. 3. July 2014 - negative Lexiscan Cardiolite stress test. 4. June 18, 2011 - Medtronic permanent pacemaker placed. 5. Persistent atrial fibrillation, on Xarelto. 6. Sick sinus syndrome, status post pacemaker. 7. Chronic diastolic CHF with history of volume overload. 8. Hypertension. 9. Hyperlipidemia. Unit #: [id number] #: [id number] Patient: CHEYENNE OSBORN 10. Diabetes. 11. History of bladder cancer. 12. History of goiter. 13. PPI. 14. Obstructive sleep apnea. 15. Nonsmoker. PAST SURGICAL HISTORY 1. Appendectomy. 2. Parathyroid surgery. 3. Hysterectomy. 4. Cholecystectomy. 5. Bladder surgery. 6. Back surgery. 7. Permanent pacemaker implantation. HOME MEDICATIONS 1. Cardizem CD 120 mg p.o. daily. 2. Cymbalta 60 mg p.o. daily. 3. Vitamin D 5000 units p.o. weekly. 4. Flonase two sprays to each naris daily. 5. Lansoprazole 30 mg p.o. daily. 6. Lactobacillus, one cap p.o. daily. 7. Xarelto 15 mg p.o. daily. 8. Methimazole 5 mg p.o. three times daily. 9. MiraLAX 17 grams p.o. daily. 10. Symbicort 80/4.5 mcg inhalation b.i.d. 11. Sotalol 160 mg p.o. q.i.d. 12. Mirapex 1 g p.o. at bedtime. 13. Milk of magnesia 30 mL p.o. daily. 14. Ipratropium albuterol 3 mL inhalation four times daily p.r.n. shortness of breath. 15. NovoLog 5 units subcu with meals. 16. Nystatin transdermal. 17. Bumex 1 mg p.o. b.i.d. FAMILY HISTORY Positive for coronary artery disease. SOCIAL HISTORY The patient is a resident of [facility]. There is no history of tobacco, alcohol or illicit drug abuse. REVIEW OF SYSTEMS A ten point review of systems was attempted. The patient does deny shortness of breath, nausea, vomiting or diarrhea. She does endorse a cough. It was difficult to obtain secondary to her mentation. PHYSICAL EXAMINATION GENERAL: The patient is awake, in no acute distress. VITAL SIGNS: Temperature 98, heart rate 105, respirations 16, blood pressure 124/76. She is oxygenating 99% on oxygen. HEENT: Head is atraumatic, normocephalic. Pupils are equal, round and reactive. Extraocular movements are intact. No discharge from ears or nares. NECK: Supple. Trachea is midline. No thyromegaly or lymphadenopathy is appreciated. Normal carotid upstroke. CHEST: Lungs have scattered rhonchi with crackles in the bases. Unit #: [id number] #: [id number] Patient: CHEYENNE OSBORN CARDIOVASCULAR: S1, S2. Regular. There is a 1/6 murmur. ABDOMEN: Soft, nontender, nondistended. Bowel sounds are positive in all four quadrants. No hepatosplenomegaly is appreciated. SKIN: Appears to be warm, dry and intact. EXTREMITIES: No clubbing or cyanosis. The patient does have bilateral lower extremity edema. DIAGNOSTIC STUDIES LABORATORY: Blood cultures are pending. Point of care troponin is less than 0.05. BNP is 509. White blood cells 5.5, hemoglobin 11.1, hematocrit 35.2, platelets 140, sodium 137, potassium 4.2, chloride 101, CO2 27, BUN 37, creatinine 1.2, glucose 132. IMAGING: Chest x-ray shows bilateral infiltrate, more in the right middle lobe with atypical pulmonary edema. CARDIOVASCULAR: EKG shows atrial fibrillation with PVCs and QTC of 399. ASSESSMENT 1. Acute on chronic hypoxic respiratory failure. 2. Healthcare-associated pneumonia: Cover Gram-positive if urine negative. 3. Acute on chronic diastolic congestive heart failure with an left ventricular ejection fraction of 60%. 4. Volume overload with pulmonary edema. 5. Persistent atrial fibrillation, on Xarelto. 6. Sick sinus syndrome, status post Medtronic pacemaker. 7. Normal coronaries per cath in 2010. 8. Hypertension. 9. Hyperlipidemia. 10. Diabetes. 11. Hypothyroidism. 12. Irritable bowel syndrome. 13. History of bladder cancer. 14. Deconditioning. 15. Altered mental status. PLAN Cardiology has been consulted for volume overload and pulmonary edema. At this time, will continue strict I's and O's and a 1800 mL fluid restriction. Will place the patient on 2 g sodium diet. Agree with IV Bumex at this time. Will ask for nursing to obtain daily weights on the patient. Will ask speech therapy to evaluate the patient for swallowing to rule out any aspiration pneumonia. Will also have nursing to obtain a urinalysis. Send culture and sensitivity if appropriate. Will check CMP, CBC, mag, TSH and lipid panel in the morning. At this time, will continue Cardizem and Betapace. A 2D echocardiogram is pending. Dr. Menendez is to see the patient and further recommendations will be made. Dictated by... Genevieve Hernández A.P.R.N. for Kb Menendez M.D. AM/belia TD: 02/01/2017 12:21 Unit #: [id number] #: [id number] Patient: CHEYENNE OSBORN JOB #: [id number] CONSULTATION REPORT Page 1 of 1 X Genevieve Hernández APRN X CONSULTATION REPORT
--- NOTE | ~2017-01-31 | A ---
[facility] Nutrition Therapy DATE: 02/03/17 Patient: CHEYENNE OSBORN Physician: ABBEY Address: [address] [place] [address] Room/Bed: [address], Zip: [place] [address] Admit Date: 01/31/17 Date of : 38 Height: 5 8 Weight: 261 118.5 NUTRITIONAL ASSESSMENT: REASON: NPO in ICU/ enteral nutrition assessment 76 yo female admitted for SOB, PNA, respiratory failure now s/p resuscitated, volume overload PMH: Dementia, Afib, HTN, HLD, sick sinus s/p pacemaker, GERD, diverticulosis, h/o bladder cancer, appendectomy, cholecystectomy, parathyroid surgery, DEVAN, hypothyroid, morbidly obese Anthropometrics: Ht: 62" Wt: 104.5 kg (230#) per family in room (wide weight range in [facility]) BMI: 42.1 IBW: 50 kg Labs: Gluc 171 BUN 43 Creat 1.7 Alb 3.0 Accuchecks 140-149 GFR 28.4 BNP 481 Meds: D5%, versed, fentanyl, protonix, levophed, novolog, vitamin D, MOM, miralax I/O & Bowel function: 1220/6, last BM 02/02, NGT Skin Integrity: Redness/ dryness/ discoloration BL feet/ BLE Redness to breast/ abdominal folds/ buttocks Right mcgee- open ulcer Edema: Abdomen- generalized Estimated Nutrition Needs: 3195-6494 kcals (12-15 kcals/kg ABW) 100-125 grams protein (2.0-2.5 grams/kg IBW) Assessment: Chart reviewed, events noted. Pt admitted 01/31 for SOB, PNA. Code blue was called when the pt was on the 5th floor, and the pt was resuscitated and intubated. Pt is now in the ICU on the vent, volume overloaded. MD does not plan to start enteral nutrition today per conversation with RD. DENTURE PACKER has been following this pt, who likely has aspiration PNA per MD note. DENTURE PACKER previously recommended mechanical soft/ no mixed consistency diet with nectar thick liquids and feeding assistance. DENTURE PACKER did complete a video evaluation. Pt presents morbidly obese, and family reports that the pt likely weighs ~230# and is 5'2". Wide range of weights/ heights noted in [employer]. Please see recommendations below. Dx: Inadequate protein-energy intake RT clinical condition AEB intubated, NPO. Intervention: [facility] Nutrition Therapy DATE: 02/03/17 Patient: CHEYENNE OSBORN Physician: ABBEY Address: [address] Room/Bed: [address], Zip: [place] [address] Admit Date: 01/31/17 Date of : [birth year] Height: 5 8 Weight: 261 118.5 1. NPO 2. Enteral nutrition once medically feasible Monitoring, Evaluation and Goals: 1. Nutrition; provide >80% of the pt's nutrient needs once medically feasible 2. Labs; WNL: glucose, BUN, creat, BNP 3. Weight; prevent unintentional weight loss, promote gradual weight loss once medically feasible 4. Skin; prevent breakdown Recommendations: 1. Once medically feasible when the pt is hemodynamically stable, recommend initiating enteral nutrition with Glucerna 1.5 @ 20 mL/hr + 30 mL Prostat TID. Increase by 10 mL q 8 hrs as tolerated to goal of 35 mL/hr + 30 mL Prostat TID. This would provide: 1560 kcals/ 114 grams protein/ 638 mL free H20 Free H20 flushes per MD orders noting CHF, cardiac history 2. If the pt is extubated, recommend DENTURE PACKER re-evaluation to determine if the pt can safely tolerate PO intake. Pt is at moderate-severe nutritional risk. RD will follow hospital course. Respectfully, VERNON CRAIG RD, LD [employer] and Nutrition[employer] [facility] cc: client file
--- NOTE | ~2017-01-31 | CR72 ---
[facility] A Service of [facility] & [facility] RADIOLOGY TEXT RESULTS PATIENT: CHEYENNE OSBORN LOCATION: [address]16 : 38 UNIT #: [id number] AGE: [address]: Elsie Velez MD SEX: F ORDER DR: [id number] [facility] [address] [place], [place] [address] [id number] I MR#: [id number] Acc #: [id number] NAME: CHEYENNE OSBORN : 1940 SEX: F STUDY DATE/TIME: 02/04/2017 5:21 UNIT: [facility] ROOM: [facility] STUDY DESCRIPTION: CR Chest Single View Portable Attending Physician: Elsie Velez M.D. Ordering Physician: Elsie Velez M.D. Primary Care Physician: Dottie Chavez M.D. MEDICAL IMAGING REPORT This report is preliminary unless electronic signature is present EXAM Portable chest INDICATION Follow up endotracheal tube and infiltrates. FINDINGS Today's portable view of the chest is compared with yesterday's study. The endotracheal tube and nasogastric remain in good position. There are low lung volumes with mild diffuse right lung infiltrate and left base atelectasis. The heart size is normal. Dictated by... Edin Grace M.D. THIS IS AN ELECTRONICALLY VERIFIED REPORT Edin Grace M.D. at 02/04/2017 12:29 PM VERONICA/lito TD: 02/04/2017 09:00 JOB #: [id number] MEDICAL IMAGING REPORT Page 1 of 1 COPY
--- NOTE | ~2017-01-31 | EKG ---
PATIENT: CHEYENNE OSBORN UNIT #: [id number] Ventricular Rate: 72 BPM Atrial Rate: 72 BPM P-R Interval: 180 ms QRS Duration: 84 ms Q-T Interval: 370 ms QTC Calculation(Bezet): [address]: 61 degrees Calculated [address]: 3 degrees Calculated T [address]: 152 degrees Diagnosis Line: Sinus rhythm Diagnosis Line: Low voltage QRS Diagnosis Line: Septal infarct (cited on or before 03-FEB-2017) Diagnosis Line: Abnormal ECG Diagnosis Line: When compared with ECG of 03-FEB-2017 02:32, Diagnosis Line: Current undetermined rhythm precludes rhythm Diagnosis Line: comparison, needs review Diagnosis Line: Questionable change in initial forces of Diagnosis Line: Anteroseptal leads Diagnosis Line: ST now depressed in Lateral leads Diagnosis Line: Confirmed by RUDOLPH HAYS MD ([id number]) on 02/07/2017 Diagnosis Line: 2:51:16 PM INTERPRETING MD: SAÚL KEEN
--- NOTE | ~2017-01-31 | CR72 ---
[facility] A Service of [facility] & [facility] RADIOLOGY TEXT RESULTS PATIENT: CHEYENNE OSBORN LOCATION: [address]16 : [birth year] UNIT #: [id number] AGE: [address]: Elsie Velez MD SEX: F ORDER DR: [id number] [facility] [address] [place], [place] [address] [id number] I MR#: [id number] Acc #: [id number] NAME: CHEYENNE OSBORN : 1940 SEX: F STUDY DATE/TIME: 02/04/2017 16:17 UNIT: [facility] ROOM: [facility] STUDY DESCRIPTION: CR Chest Single View Portable Attending Physician: Elsie Velez M.D. Ordering Physician: Elsie Velez M.D. Primary Care Physician: Dottie Chavez M.D. MEDICAL IMAGING REPORT This report is preliminary unless electronic signature is present EXAM Portable chest HISTORY Pneumonia. On ventilator. FINDINGS ETT tip is 2.5 cm above the audrey. Right IJ central line tip is in the right atrium 3.5 cm beyond the junction of the SVC and right atrium. No pneumothorax. Small right pleural effusion has apparently developed or increased compared to earlier today. Persistent dense consolidation or atelectasis in the left lower lung and probable associated left pleural effusion. Evaluation of the left base is limited with patient rotation to the left. No pneumothorax. NG tube has been removed. Dictated by... Manolo Parmar M.D. THIS IS AN ELECTRONICALLY VERIFIED REPORT Manolo Parmar M.D. at 02/05/2017 12:04 AM KELLYL/gilbert TD: 02/04/2017 19:56 JOB #: [id number] MEDICAL IMAGING REPORT Page 1 of 1 COPY
--- NOTE | ~2017-01-31 | US84 ---
[id number] [facility] [address] [place], [place] [address] [id number] I MR#: [id number] Acc #: [id number] NAME: CHEYENNE OSBORN : 1940 SEX: F STUDY DATE/TIME: 02/05/2017 21:08 UNIT: [facility] ROOM: [facility] STUDY DESCRIPTION: US LE Veins Complete Mukesh Stdy Attending Physician: Elsie Velez M.D. Ordering Physician: Zeenat Yao M.D. Primary Care Physician: Dottie Chavez M.D. MEDICAL IMAGING REPORT This report is preliminary unless electronic signature is present EXAM Bilateral lower extremity venous duplex ultrasound, 02/05/2017 HISTORY 76-year-old female with bilateral lower extremity swelling for 2 days. COMPARISON Bilateral lower extremity venous ultrasound 06/27/2007. FINDINGS Real time carson-scale, color Doppler, and spectral Doppler analysis of the bilateral lower extremity deep venous systems demonstrates normal venous waveforms with normal compressibility and augmentation throughout. No evidence of bilateral lower extremity deep venous thrombosis. IMPRESSION Negative for bilateral lower extremity DVT. Dictated by... Jayro Cohen M.D. THIS IS AN ELECTRONICALLY VERIFIED REPORT Jayro Cohen M.D. at 02/06/2017 11:30 PM Stas TD: 02/06/2017 11:53 JOB #: [id number] MEDICAL IMAGING REPORT Page 1 of 1 COPY
--- NOTE | ~2017-01-31 | HP ---
Unit #: [id number] #: [id number] Patient: CHEYENNE OSBORN [id number] [place], [place] [address] [id number] I MR#: [id number] NAME: CHEYENNE OSBORN ROOM: 576 Age: 76 Sex: F Admission Date: 01/31/2017 : 1940 Attending Physician: Vic Kowalski M.D. Primary Care Physician: Dottie Chavez M.D. HISTORY AND PHYSICAL CHIEF COMPLAINT Shortness of breath. HISTORY OF PRESENT ILLNESS The patient is a 76-year-old female with history of dementia and atrial fibrillation, on Xarelto. Was recently discharged to [facility] with pneumonia, brought to the emergency room from [facility] with shortness of breath. The patient also has history of chronic hypoxic respiratory failure, on 2 liters of oxygen. The patient is unable to provide any history, and the history is obtained by speaking with the ER physician. The patient had a chest x-ray that showed bilateral infiltrate concerning for right middle lobe infiltrate versus atypical pulmonary edema. The patient is being admitted for the above reasons. The patient denies any fever, chills or any productive cough. PAST MEDICAL HISTORY Hypertension, hyperlipidemia, gastroesophageal reflux disease, diverticulosis, hypothyroidism, irritable bowel syndrome, CHF, history of pacemaker. PAST SURGICAL HISTORY Appendectomy, parathyroid surgery, hysterectomy, cholecystectomy, bladder surgery, back surgery. HOME MEDICATIONS She is on NovoLog, nystatin, bumetanide, Symbicort, sotalol, Mirapex, Milk of Magnesia, ipratropium, acidophilous, Xarelto, methimazole, polyethylene glycol, Cardizem, Cymbalta, vitamin, Flonase and lansoprazole. ALLERGIES Iodine, IV dye, salicylate, tetracycline, sulfa drugs, macrolide, Bactrim, aspirin, Erythromycin. SOCIAL HISTORY The patient is a resident of [facility]. There is no history of smoking, alcohol or any illicit drug abuse. FAMILY HISTORY Positive for coronary artery disease. REVIEW OF SYSTEMS Unable to obtain. PHYSICAL EXAMINATION Unit #: [id number] #: [id number] Patient: CHEYENNE OSBORN GENERAL: The patient is lying in the bed, not in acute distress. VITALS: Temperature is 98.7, pulse 101, respiratory rate 13, blood pressure 125/57, satting 97% on room air. The patient's saturation at the time of presentation was 88% [facility] the [facility], and the patient received neb and sats went up to 95% per EMS. HEENT: Head atraumatic, normocephalic. Pupils are equally round reactive to light and accommodation. Extraocular movements are intact. Dry mucous membranes. NECK: Supple. No JVD. LUNGS: Decreased air entry at the bases. Positive for rales. CARDIOVASCULAR: Regular rate and rhythm. ABDOMEN: Soft. Positive bowel sounds. Positive for obesity. EXTREMITIES: No cyanosis. No clubbing. DIAGNOSTIC STUDIES LAB DATA: Glucose 132, BUN 37, creatinine 1.2, sodium 137, potassium 4.2, chloride 101, bicarb 27, calcium 9, magnesium 1.9, total protein 6.2, albumin 3.4, AST 16, ALT 12, alkaline phosphatase 79. BNP 506. INR is 1.5. WBC 5.5, hemoglobin 11.1, hematocrit 35.2, platelets 140, neutrophils 79.2. IMAGING: Chest x-ray shows bilateral infiltrate, more in the right middle lobe with atypical pulmonary edema. CARDIOVASCULAR: The patient had an EKG that shows A fib with PVCs at a rate of 95 beats per minute, QTc of 399. ASSESSMENT 1. Pneumonia with bilateral infiltrate. 2. Atypical pulmonary edema. 3. Dementia. 4. Morbid obesity. PLAN Plan to admit the patient to inpatient with telemetry. Continue with empiric IV antibiotics and IV diuretics. Will have cardiology consultation for the pulmonary edema and check the echo and sputum cultures. I will repeat the labs again in the morning. Further recommendations will follow. Dictated by Halle Mendez TD: 02/01/2017 08:05 JOB #: [id number] Unit #: [id number] #: [id number] Patient: CHEYENNE OSBORN HISTORY AND PHYSICAL Page 1 of 1 X X HISTORY AND PHYSICAL
--- NOTE | ~2017-01-31 | CR7 ---
[facility] A Service of [facility] & [facility] RADIOLOGY TEXT RESULTS PATIENT: CHEYENNE OSBORN LOCATION: [address]16 : 38 UNIT #: [id number] AGE: [address]: Elsie Velez MD SEX: F ORDER DR: [id number] [facility] [address] [place], [place] [address] [id number] I MR#: [id number] Acc #: [id number] NAME: CHEYENNE OSBORN : 1940 SEX: F STUDY DATE/TIME: 02/04/2017 23:02 UNIT: [facility] ROOM: [facility] STUDY DESCRIPTION: CR Abdomen Single AP View Attending Physician: Elsie Velez M.D. Ordering Physician: Elsie Velez M.D. Primary Care Physician: Dottie Chavez M.D. MEDICAL IMAGING REPORT This report is preliminary unless electronic signature is present EXAM AP view of the abdomen COMPARISON February 03, 2017 INDICATIONS 76-year-old female. Feeding tube placement. FINDINGS Weighted feeding tube tip is likely within the first portion of the duodenum. There is scoliosis of the lumbar spine. There is residual contrast seen within the stomach and within the colon with some interval passage of colonic contrast and/or barium. Disk spacer material seen in the lower lumbar spine likely at L5-S1. No abnormally dilated bowel loops. IMPRESSION Weighted feeding tube tip in the first portion of duodenum. No evidence of bowel obstruction. Dictated by... Cameron Pires M.D. THIS IS AN ELECTRONICALLY VERIFIED REPORT Cameron Pires M.D. at 02/08/2017 8:07 PM Betty TD: 02/05/2017 07:27 JOB #: [id number] MEDICAL IMAGING REPORT Page 1 of 1 COPY
--- NOTE | ~2017-01-31 | CR7 ---
[facility] A Service of [facility] & [facility] RADIOLOGY TEXT RESULTS PATIENT: CHEYENNE OSBORN LOCATION: [address]16 : 38 UNIT #: [id number] AGE: [address]: Elsie Velez MD SEX: F ORDER DR: [id number] [facility] [address] [place], [place] [address] [id number] I MR#: [id number] Acc #: [id number] NAME: CHEYENNE OSBORN : 1940 SEX: F STUDY DATE/TIME: 02/03/2017 14:51 [facility]: [facility] STUDY DESCRIPTION: CR Abdomen Single AP View Attending Physician: Elsie Velez M.D. Ordering Physician: Physician Non-Staff Primary Care Physician: Dottie Chavez M.D. MEDICAL IMAGING REPORT This report is preliminary unless electronic signature is present EXAM Supine radiographs of the abdomen 02/03/2017 HISTORY Abdomen distention on bend NG tube today. Prior history of bladder cancer. Supine radiographs of the abdomen are presented. FINDINGS The study is somewhat limited secondary to difficulty in patient positioning related to the patient's clinical status and very large body habitus. The image of low abdomen and pelvis is markedly degraded by poor radiographic technique and motion artifact. There is an enteric tube, which terminates probably in the mid stomach. Appearance similar to 02/03/2017 at 0332 hours given differences in positioning of patient. There is residual contrast material in the colon. The bowel gas pattern is normal. No small bowel or colonic dilatation. Air, stool and contrast material seen throughout the colon to rectum. Surgical clips superimposed over the upper mid pelvis. No indication of free air. No small bowel dilatation suggested. Degenerative changes in spine and bilateral hips. Dictated by... Justin Teixeira M.D. THIS IS AN ELECTRONICALLY VERIFIED REPORT Justin Teixeira M.D. at 02/04/2017 5:55 PM Facundo TD: 02/03/2017 15:46 JOB #: [id number] [facility] A Service of [facility] & [facility] RADIOLOGY TEXT RESULTS PATIENT: CHEYENNE OSBORN LOCATION: C[facility]3 CICCU3-16 : 38 UNIT #: [id number] AGE: [address]: Elsie Velez MD SEX: F ORDER DR: MEDICAL IMAGING REPORT Page 1 of 1 COPY
--- NOTE | ~2017-01-31 | DS ---
Unit #: [id number] #: [id number] Patient: CHEYENNE OSBORN [id number] [facility]. [place], [place] [address] [id number] I MR#: [id number] NAME: CHEYENNE OSBORN ROOM: [facility] Age: 76 Sex: F Admission Date: 01/31/2017 : 1940 Discharge Date: 02/08/2017 Attending Physician: Elsie Velez M.D. Primary Care Physician: Dottie Chavez M.D. DISCHARGE SUMMARY SUMMARY DATE OF 02/08/2017. HOSPITAL COURSE Unfortunately, the patient's renal function continue to worsen. She was placed on a Bumex drip per Dr. Zavala and did initially have some diuresis, but then renal function began to worsen. Her oxygen requirements also initially improved and then began to worsen and she was unable to maintain sats in the 90s even on a large amount of PEEP and 100% FiO2. This was all discussed with the patient's power of privacy attorney, Ivet Fontenot and ultimately the patient was terminally extubated. She on 02/08/2017 at 17:07. Dictated by... Elsie Velez M.D. TALAT/peggy TD: 02/09/2017 04:05 JOB #: [id number] DISCHARGE SUMMARY Page 1 of 1 X Elsie Velez MD X DISCHARGE SUMMARY
--- NOTE | ~2017-01-31 | FU ---
[facility] Nutrition Therapy DATE: 02/05/17 Patient: CHEYENNE OSBORN Physician: ABBEY Address: [address] Room/Bed: [address], Zip: [place] [address] Admit Date: 01/31/17 Date of : [birth year] Height: 5 8 Weight: 282 128 NUTRITION MONITORING/FOLLOW-UP: Reason: Nutrition follow up Anthropometrics: Ht: 62" Adm wt: 104.5 kg BMI: 42.1 Wt 02/05: 128 kg- (Weight likely inaccurate based on RD conversation with family) Labs: Na+ 130 K+ 3.1 Gluc 147 BUN 43 Creat 2.2 Ca++ 7.9 Alb 2.2 Accuchecks 119-142 GFR 20.8 Meds: Pepcid (IV), Bumex, levemir, novolog, versed, D5%, levophed, MOM, miralax, KCl I&O's: 3012/1279, last BM 02/02 Skin: Reviewed, no changes noted. Edema: 1+ BUE/ BLE/ Hips/ Abdomen/ trunk Estimated Nutrition Needs: 6670-9918 kcals (12-15 kcals/kg ABW) 100-125 grams protein (2.0-2.5 grams/kg IBW) Assessment: Chart reviewed, events noted. Pt remains intubated in the ICU. Pt is receiving Glucerna 1.5 @ 35 mL/hr + Prostat TID per RN report. RN also reports that the pt's abdomen is firm and distended. RD recommended obtaining a KUB. Per pump history, the pt has received 23% goal volume of enteral nutrition x 24 hrs. This is due to the fact that the pt has not been at goal rate for 24 hrs. Nutrition diagnosis remains unchanged. Dx: Intervention: 1. Enteral nutrition Monitoring, Evaluation and Goals: 1. Enteral nutrition; provide >80% goal volume x 24 hrs 2. Labs; WNL: gluc, electrolytes, BUN, Creat 3. Weight; preserve lean body mass 4. Skin; prevent breakdown 5. GI; promote regular GI function Recommendations: 1. May consider obtaining a KUB/ consulting GI to determine why the pt's abdomen is [facility] Nutrition Therapy DATE: 02/05/17 Patient: CHEYENNE OSBORN Physician: ABBEY Address: [address] Room/Bed: [address], Zip: [place] [address] Admit Date: 01/31/17 Date of : [birth year] Height: 5 8 Weight: 282 128 firm/ distended. 2. Continue enteral nutrition with Glucerna 1.5 @ 35 mL/hr + Prostat TID as medically feasible. 3. Continue to monitor for symptoms of enteral intolerance and residuals per protocol. 4. If the pt is extubated, recommend DOCUMENT CONTROL ASSISTANT evaluation. Status: Pt is at moderate nutritional risk. RD will continue to follow. Respectfully, VERNON CRAIG RD, LD [facility] cc: client file
--- NOTE | ~2017-01-31 | CR7 ---
[facility] A Service of [facility] RADIOLOGY TEXT RESULTS PATIENT: CHYEENNE OSBORN [facility] UNIT #: [id number] AGE: [address]: Elsie Velez MD SEX: F ORDER DR: [id number] [facility] [address]. [place], [place] [address] [id number] I MR#: [id number] Acc #: [id number] NAME: CHEYENNE OSBORN : 1940 SEX: F STUDY DATE/TIME: 02/03/2017 3:32 UNIT: [facility] ROOM: [facility] STUDY DESCRIPTION: CR Abdomen Single AP View Attending Physician: Elsie Velez M.D. Ordering Physician: Tatiana Jackson M.D. Primary Care Physician: Dottie Chavez M.D. MEDICAL IMAGING REPORT This report is preliminary unless electronic signature is present EXAM Frontal abdomen 02/03/2017 INDICATION NG tube placement in a 76-year-old female. Volume overload. Respiratory failure. Code blue. TECHNIQUE Frontal abdomen was performed. COMPARISON None. FINDINGS There is motion degradation. There is an enteric tube present and the tip is at the level of the lzs-jy-tjnhxg body stomach. There appears to be a small amount of oral contrast at the level of the stomach. IMPRESSION Enteric tube tip is at the level of the znb-ct-ascyof body stomach. There appears to be a small amount of oral contrast at the level of the stomach as well. Dictated by... Wes Mora M.D. THIS IS AN ELECTRONICALLY VERIFIED REPORT Wes Mora M.D. at 02/03/2017 9:54 PM RADHA/lito TD: 02/03/2017 08:31 [facility] A Service of [facility] RADIOLOGY TEXT RESULTS PATIENT: CHEYENNE OSBORN [facility] : 38 UNIT #: [id number] AGE: [address]: Elsie Velez MD SEX: F ORDER DR: JOB #: [id number] MEDICAL IMAGING REPORT Page 1 of 1 COPY
--- NOTE | ~2017-01-31 | CR72 ---
[facility] A Service of [facility] & [facility] RADIOLOGY TEXT RESULTS PATIENT: CHEYENNE OSBORN LOCATION: [address]16 : 38 UNIT #: [id number] AGE: [address]: Elsie Velez MD SEX: F ORDER DR: [id number] [facility] [address] [place], [place] [address] [id number] I MR#: [id number] Acc #: [id number] NAME: CHEYENNE OSBORN : 1940 SEX: F STUDY DATE/TIME: 02/03/2017 2:36 UNIT: [facility] ROOM: [facility] STUDY DESCRIPTION: CR Chest Single View Portable Attending Physician: Elsie Velez M.D. Ordering Physician: Elsie Velez M.D. Primary Care Physician: Dottie Chavez M.D. MEDICAL IMAGING REPORT This report is preliminary unless electronic signature is present EXAM Frontal chest, 02/03/2017 INDICATION 76-year-old female for ET tube placement. Respiratory failure, volume overload, code blue. Bladder cancer, hypertension. TECHNIQUE Frontal chest compared with 01/31/2017 FINDINGS ET tube tip appears to be in satisfactory position about 1.4 cm above the level of the gerda. Gerda is difficult to visualize due to technical factors. Patient is rotated to the left and there is globular cardiomegaly. Prominence of the left heart border and aortic knob unchanged for technical factors. There is vascular congestion. There is asymmetric edema, atelectasis or infiltrate in the perihilar mid and upper lung zones on the right. Probable trace fluid associated with minor fissure on the right. Persistent retrocardiac atelectasis or infiltrate and left-sided effusion. No distinct pneumothorax. IMPRESSION 1. ET tube tip in good position above the gerda to the extent visualized. No pneumothorax. 2. Cardiomegaly with vascular congestion. Worsening asymmetric edema, atelectasis or infiltrate in the perihilar mid and upper lung zones on the right. Trace amount of fluid in the minor fissure on the right. 3. Persistent atelectasis or infiltrate in the left lung base and small left effusion. [facility] A Service of [facility] & [facility] RADIOLOGY TEXT RESULTS PATIENT: CHEYENNE OSBORN LOCATION: [facility]3-16 : 38 UNIT #: [id number] AGE: [address]: Elsie Velez MD SEX: F ORDER DR: STAT * RESULT Dictated by... Wes Mora M.D. THIS IS AN ELECTRONICALLY VERIFIED REPORT Wes Mora M.D. at 02/03/2017 5:15 AM Adama TD: 02/03/2017 03:26 JOB #: [id number] MEDICAL IMAGING REPORT Page 1 of 1 COPY
--- NOTE | ~2017-01-31 | CR71 ---
[facility] A Service of [facility] & [facility] RADIOLOGY TEXT RESULTS PATIENT: CHEYENNE OSBORN LOCATION: [address]-16 : 38 UNIT #: [id number] AGE: [address]: Elsie Velez MD SEX: F ORDER DR: [id number] [facility] [address] [place], [place] [address] [id number] I MR#: [id number] Acc #: [id number] NAME: CHEYENNE OSBORN : 1940 SEX: F STUDY DATE/TIME: 02/05/2017 4:54 [facility] STUDY DESCRIPTION: CR Chest Single View Attending Physician: Elsie Velez M.D. Ordering Physician: Zeenat Yao M.D. Primary Care Physician: Dottie Chavez M.D. MEDICAL IMAGING REPORT This report is preliminary unless electronic signature is present EXAM Frontal chest 02/05/2017 INDICATION Pneumonia. Ventilator patient. 76-year-old female with pneumonia for 3 days. Bladder cancer, hypertension, diabetes, congestive heart failure. TECHNIQUE Frontal chest compared with 02/04/2017. FINDINGS ET tube tip in good position above the audrey. There is an enteric tube present and the tip is below the diaphragm but not in the field of view. Probable residual oral contrast material in the upper abdomen. Right-sided central line from a neck approach unchanged. The heart is enlarged but stable. Retrocardiac atelectasis or infiltrate and small left effusion persist. There is curvilinear atelectasis in the mid and lower lung zone on the right and there are patchy opacities in the mid and lower lung zone on the right as well. Conspicuity of the right-sided effusion has decreased since the prior study. No pneumothorax. IMPRESSION 1. Tubes and lines in satisfactory position to the extent visualized. No pneumothorax. 2. Worsening appearance of opacities in the mid and lower lung zone on the right. Previously demonstrated right-sided effusion less well seen on the current study. 3. No significant change in cardiomegaly and left basilar atelectasis or infiltrate and left-sided effusion. Dictated by... Wes Mora M.D. [facility] A Service of [facility] & [facility] RADIOLOGY TEXT RESULTS PATIENT: CHEYENNE OSBORN LOCATION: [facility]3-16 : 38 UNIT #: [id number] AGE: [address]: Elsie Velez MD SEX: F ORDER DR: THIS IS AN ELECTRONICALLY VERIFIED REPORT Wes Mora M.D. at 02/08/2017 9:13 AM RADHA/lito TD: 02/05/2017 09:20 JOB #: [id number] MEDICAL IMAGING REPORT Page 1 of 1 COPY
--- NOTE | ~2017-01-31 | CR72 ---
[facility] A Service of [facility] & [facility] RADIOLOGY TEXT RESULTS PATIENT: CHEYENNE OSBORN LOCATION: [facility]3 [facility]ICCU3-16 : 38 UNIT #: [id number] AGE: [address]: Elsie Velez MD SEX: F ORDER DR: [id number] [facility] [address] [place], [place] [address] [id number] I MR#: [id number] Acc #: [id number] NAME: CHEYENNE OSBORN : 1940 SEX: F STUDY DATE/TIME: 01/31/2017 6:31 UNIT: [facility] ROOM: 576 STUDY DESCRIPTION: CR Chest Single View Portable Attending Physician: Vic Kowalski M.D. Ordering Physician: Aleksandr Burns M.D. Primary Care Physician: Dottie Chavez M.D. MEDICAL IMAGING REPORT This report is preliminary unless electronic signature is present EXAM Portable AP view of the chest COMPARISON November 16, 2016, November 11, 2016, January 17, 2013. INDICATION 76-year-old female with dyspnea and weakness today. FINDINGS There are very low lung volumes. When allowing for this, there is likely stable mediastinal widening and cardiomegaly, possibly vascular in nature. Dual lead left chest pacemaker device appears stable, without evidence of complication. No pneumothorax is seen. There are increased band-like opacities localizing to the right middle or upper lobe, slightly increased left perihilar opacities from comparison, which do not appear appreciably changed from January 2013, possibly representing chronic and normal bronchovascular structures. There is minimal increased opacity in the left lateral lung base perhaps representing atelectasis or pleural effusion. There is cephalization of pulmonary vasculature and findings in the lungs could represent asymmetric pulmonary edema although given low lung volumes bronchovascular crowding could also give this appearance. There is increased band-like opacity in the medial right pulmonary apex as well. IMPRESSION Very low lung volumes with new bilateral lung opacities more confluent in the right midlung field. Differential diagnosis given cardiomegaly includes asymmetric pulmonary edema, atelectasis and/or pneumonia. There may be small new left pleural effusion. Dictated by... [facility] A Service of [facility] & [facility] RADIOLOGY TEXT RESULTS PATIENT: CHEYENNE OSBORN LOCATION: CIC3 CICCU3-16 : 38 UNIT #: [id number] AGE: [address]: Elsie Velez MD SEX: F ORDER DR: Cameron Pires M.D. THIS IS AN ELECTRONICALLY VERIFIED REPORT Cameron Pires M.D. at 02/03/2017 10:30 AM STEFANIE/lito TD: 02/01/2017 06:30 JOB #: [id number] MEDICAL IMAGING REPORT Page 1 of 1 COPY
--- NOTE | ~2017-01-31 | CR72 ---
[facility] A Service of [facility] & [facility] RADIOLOGY TEXT RESULTS PATIENT: CHEYENNE OSBORN LOCATION: [address]16 : 38 UNIT #: [id number] AGE: [address]: Elsie Velez MD SEX: F ORDER DR: [id number] [facility] [address] [place], [place] [address] [id number] I MR#: [id number] Acc #: [id number] NAME: CHEYENNE OSBORN : 1940 SEX: F STUDY DATE/TIME: 02/03/2017 8:43 UNIT: [facility] ROOM: [facility] STUDY DESCRIPTION: CR Chest Single View Portable Attending Physician: Elsie Velez M.D. Ordering Physician: Zeenta Yao M.D. Primary Care Physician: Dottie Chavez M.D. MEDICAL IMAGING REPORT This report is preliminary unless electronic signature is present EXAM Portable chest, 02/03 COMPARISON Earlier the same day. INDICATION Central venous catheter placement. Followup pneumonia and followup endotracheal tube. FINDINGS Today's portal view of the chest shows a new right-sided central venous catheter with its tip in the right atrium. There is no pneumothorax. Bilateral infiltrates are stable. Pacemaker and endotracheal tube are in good position. Dictated by... Edin Grace M.D. THIS IS AN ELECTRONICALLY VERIFIED REPORT Edin Grace M.D. at 02/03/2017 11:07 AM VERONICA/alka TD: 02/03/2017 10:24 JOB #: [id number] MEDICAL IMAGING REPORT Page 1 of 1 COPY
--- NOTE | ~2017-01-31 | CO ---
Unit #: [id number] #: [id number] Patient: ADELITA OSBORN [id number] [facility]. [id number] [place], [place] [address] [id number] I MR#: [id number] NAME: ADELITA OSBORN ROOM: [facility]ICCU3 Age: 76 Sex: F Admission Date: 01/31/2017 : 1940 Attending Physician: Elsie Velez M.D. Primary Care Physician: Dottie Chavez M.D. Consultation Date: 02/03/2017 CONSULTATION REPORT NEPHROLOGY CONSULTATION REASON FOR CONSULTATION Renal failure. Thank you very much for asking us to see this patient in consultation. Ms. Adelita Osborn is a 76-year-old female who was here in the hospital a week or so ago with pneumonia. She came back in on 01/31/2017 with increased shortness of breath from her half-way. She was started on IV diuretics and antibiotics. She subsequently went into respiratory arrest and subsequently cardiac arrest in the last 24 hours. Patient is now intubated, sedated in the unit. We were called secondary to decreased urine output. Patient with no significant output over the last few hours. Patient was noted this morning to have an increasing BUN and creatinine of 43 and 1.7. The patient has had normal kidney function prior to this hospitalization. She currently is, again, sedated on the vent, intubated. She is off pressors and her blood pressure is around 100 now. Her O2 saturation is around 97% to 98%, according to the nurse now. She was started on IV fluids as well and remains on those currently. PAST MEDICAL HISTORY 1. She has a history of dementia. 2. History of cirrhosis by CT. 3. History of atrial fib/sick sinus syndrome status post pacemaker. 4. History of hypertension. 5. History of hyperlipidemia. 6. History of insulin-dependent diabetes mellitus. 7. History of bladder cancer status post bladder surgery in the past. 8. History of goiter. 9. History of obstructive sleep apnea. 10. History of obesity. 11. History of gastroesophageal reflux disease. 12. History of irritable bowel syndrome. 13. Status post appendectomy. 14. Status post hysterectomy. 15. Status post cholecystectomy. 16. Status post questionable parathyroidectomy. ALLERGIES IV dye, aspirin, tetracycline, sulfa drugs, Bactrim, macrolides including erythromycin. SOCIAL HISTORY She does not smoke or drink. She lives in a half-way currently. Unit #: [id number] #: [id number] Patient: ADELITA OSBORN MEDICATIONS Her medicines currently include: 1. Amiodarone drip 2. Fentanyl 3. Protonix 4. Zyvox 5. Clindamycin 6. Levophed is off now 7. Maxipime 8. Vancomycin was DCd today REVIEW OF SYSTEMS As mentioned above. Otherwise, unable to obtain. FAMILY HISTORY Unable to obtain. PHYSICAL EXAMINATION GENERAL: Again, sedated on the vent. VITAL SIGNS: T-max is 99.4, pulse 60-130, blood pressure 89 to 128/50s to 80s. HEENT: She is normocephalic, atraumatic. Her pupils appear to be equal and reactive to light. She is orally intubated, NG tube in. NECK: Supple. CARDIAC: She appears to have a regular rhythm currently without a rub, no S3 or S4. LUNGS: She has a few bilateral rhonchi. ABDOMEN: Very obese. Bowel sounds positive. Nontender. She has some trace body edema. EXTREMITIES: Lower extremities have maybe some mild edema, not severe. She does have some mottling of her lower extremities and some mild cyanosis of her extremities. : Kwan catheter is in place. SKIN: She has some mild bruising but no obvious diffuse rashes. DIAGNOSTIC STUDIES LABORATORY: Sodium 136, potassium 4.3, chloride 101, bicarb 23, BUN and creatinine 43 and 1.7, glucose 171, hemoglobin 10.5, white count 13,600, platelets 241,000. Urine sodium is 47. UA shows specific gravity 1.02, 3+ protein, 50 of glucose, 25-50 RBCs, 5-10 WBCs. IMAGING: Her chest x-ray shows cardiomegaly, vascular congestion. CT of the abdomen and pelvis on 01/20 showed cirrhosis and ascites. CARDIOLOGY: Previous echo done here showed an EF of 55% to 60%. ASSESSMENT AND PLAN 1. Acute kidney injury: This lady has acute renal failure most likely a combination of acute tubular necrosis from hypotension status post Code, possible vancomycin versus other. I am unsure of her exact volume status - she is very large, makes it very difficult. Chest x-ray is consistent with fluid, although certainly it could just be aspiration pneumonia or a pneumonia, etc. It is not unreasonable secondary with her hypotension to be on IV fluids and see how her urine output does with this. Agree with stopping her vanc. Will give her one dose of Bumex, see if we can kind of "kick start" her Unit #: [id number] #: [id number] Patient: ADELITA OSBORN kidney output. Certainly, if her renal function significantly worsens, if she becomes severely acidotic, if she becomes hyperkalemic or if her oxygenation worsens, we will need to consider BELT BUILDER. For now, at least for the next 12-24 hours, it is reasonable to do a fluid challenge and see if she responds. We will check a renal ultrasound. We will stop her Protonix due to risk of PPIs with renal failure, will switch her over to Pepcid and will follow. 2. Status post Code, questionable aspiration pneumonia versus cardiac versus other. 3. Respiratory failure. 4. Diabetes mellitus. Dictated by.Tk Zavala M.D. LUZMA/robe TD: 02/04/2017 02:20 JOB #: [id number] CONSULTATION REPORT Page 1 of 1 X Humera Zavala MD X CONSULTATION REPORT
--- NOTE | ~2017-01-31 | EKG ---
PATIENT: CHEYENNE OSBORN UNIT #: [id number] Ventricular Rate: 95 BPM Atrial Rate: 104 BPM QRS Duration: 84 ms Q-T Interval: 318 ms QTC Calculation(Bezet): 399 ms Calculated R Aston: 2 degrees Calculated T Aston: 156 degrees Diagnosis Line: Atrial fibrillation with premature ventricular or Diagnosis Line: aberrantly conducted complexes Diagnosis Line: Low voltage QRS Diagnosis Line: Nonspecific T wave abnormality Diagnosis Line: Abnormal ECG Diagnosis Line: No previous ECGs available Diagnosis Line: Confirmed by RUDOLPH HAYS MD ([id number]) on 02/01/2017 Diagnosis Line: 10:57:59 PM INTERPRETING MD: SAÚL KEEN
--- NOTE | ~2017-01-31 | CR72 ---
[facility] A Service of [facility] & [facility] RADIOLOGY TEXT RESULTS PATIENT: CHEYENNE OSBORN LOCATION: [address]-16 : [birth year] UNIT #: [id number] AGE: [address]: Elsie Velez MD SEX: F ORDER DR: [id number] [facility] [address] [place], [place] [address] [id number] I MR#: [id number] #: [id number] NAME: CHEYENNE OSBORN : 1940 SEX: F STUDY DATE/TIME: 02/07/2017 2:18 UNIT: [facility] ROOM: [facility] STUDY DESCRIPTION: CR Chest Single View Portable Attending Physician: Elsie Velez M.D. Ordering Physician: Elsie Velez M.D. Primary Care Physician: Dottie Chavez M.D. MEDICAL IMAGING REPORT This report is preliminary unless electronic signature is present EXAM Portable chest 02/07/2017 HISTORY 76-year-old female with respiratory failure. Pneumonia for 1 week. COMPARISON Chest 02/06/2017 FINDINGS Frontal chest demonstrates tubes and lines in stable position. No pneumothorax. No change in patchy bilateral pulmonary infiltrates allowing for rotation. Heart size stable. Left-sided pacing complex. IMPRESSION Tubes and lines appear stable. No pneumothorax. No significant change in patchy bilateral pulmonary infiltrates allowing for rotation. Dictated by... Jayro Cohen M.D. THIS IS AN ELECTRONICALLY VERIFIED REPORT Jayro Cohen M.D. at 02/08/2017 4:40 PM JULIANA/to TD: 02/07/2017 17:16 JOB #: [id number] MEDICAL IMAGING REPORT Page 1 of 1 COPY
--- NOTE | ~2017-01-31 | OR ---
Unit #: [id number] #: [id number] Patient: CHEYENNE OSBORN [id number] [address] [facility]. [place], [place] [address] [id number] I MR#: [id number] NAME: CHEYENNE OSBORN ROOM: [facility] Date of Procedure: 02/03/2017 Admission Date: 01/31/2017 Surgeon: Zeenat Yao M.D. : 1940 Attending Physician: Elsie Velez M.D. Primary Care Physician: Dottie Chavez M.D. PROCEDURE OPERATIVE NOTE PROCEDURE PERFORMED Right internal jugular central venous catheter placement. INDICATION FOR PROCEDURE Shock. PREPROCEDURE DIAGNOSIS Shock. POSTPROCEDURE DIAGNOSIS Shock. DETAILS OF THE PROCEDURE After placing the patient in appropriate position, with ultrasound guidance with modified Seldinger technique, a triple-lumen central venous catheter was placed in the right internal jugular vein. All 3 ports were flushed and working. Guidewire was removed in total. No complications happened. The patient tolerated the procedure very well. Line was secured in place with 2 interrupted sutures. Chest x-ray was ordered. Dictated by... Halle Temple/elton TD: 02/03/2017 09:06 JOB #: [id number] PROCEDURE OPERATIVE NOTE Page 1 of 1 X Zeenat Yao MD PROCEDURE OPERATIVE NOTE
--- NOTE | ~2017-01-31 | TOC ---
Unit #: [id number] #: [id number] Patient: CHEYENNE OSBORN [id number] [address] [address] [id number] I MR#: [id number] NAME: CHEYENNE OSBORN ROOM: [facility] Age: 76 Sex: F Admission Date: 01/31/2017 : 1940 Attending Physician: Elsie Velez M.D. Primary Care Physician: Dottie Chavez M.D. TRANSFER OF CARE SUMMARY PRINCIPAL DIAGNOSES 1. Septic shock secondary to right-sided aspiration pneumonia. 2. Acute on chronic hypercapnic hypoxic respiratory failure. 3. Atrial fibrillation with rapid ventricular response. 4. Acute on chronic diastolic congestive heart failure with ejection fraction of 60%. 5. Acute kidney injury secondary to acute tubular necrosis. 6. Hypokalemia. 7. Status post cardiopulmonary arrest/PEA. 8. Diabetes mellitus type, insulin requiring. 9. Chronic obstructive pulmonary disease. 10. Elevated troponin secondary to demand ischemia. 11. Cirrhosis. 12. Non-anion gap metabolic acidosis. 13. Moderate protein malnutrition. 14. Respiratory acidosis, resolved. 15. Dysphagia with associated aspiration. 16. Dementia. 17. Hard of hearing. 18. Hyperlipidemia. 19. Gastroesophageal reflux disease. 20. Hypothyroidism. 21. Irritable bowel syndrome. CONSULTANTS Dr. Menendez, cardiology. Dr. Yao, pulmonology. Dr. Zavala, nephrology. PROCEDURES PERFORMED 1. The patient had a right IJ central venous catheter. This occurred without complication. 2. Placement of ART line. DIAGNOSTIC DATA IMAGING: Two-dimensional echo showing ejection fraction of 60%. Dilated right ventricle noted. Mild tricuspid regurgitation noted. Chest x-ray on 02/03/2017 with cardiomegaly and vascular congestion, asymmetric edema or infiltrate in the perihilar mid and upper lung zones. Infiltrate of the left lung bases. Small effusion noted. Bilateral renal ultrasound on 02/03/2017 without of evidence of hydronephrosis. Small amount of ascites noted. Unit #: [id number] #: [id number] Patient: CHEYENNE OSBORN Chest x-ray on 01/31/2017 with low lung volumes and bilateral lung opacities in the right mid lung field. CLINICAL HISTORY/HOSPITAL COURSE Ms. Urñea is a 76-year-old female transferred from the nursing facility due to increasing shortness of breath. Chest x-ray was concerning for pneumonia versus edema and she was subsequently admitted. The patient was placed on broad spectrum antibiotics for healthcare associated pneumonia. However, I will note she has not had any fever, nor did she have any leukocytosis. Bedside swallow evaluation was concerning for questionable aspiration. Unfortunately, the patient had increasing respiratory distress abruptly on the evening of the and and was found to be in PEA. She was subsequently emergently intubated and transferred to the unit. At this time Dr. Yao was consulted. She has subsequently developed a large right-sided aspiration pneumonia with associated pulmonary edema. She is remaining on antibiotics for aspiration. Continued ventilatory support at this time per Dr. Yao. As noted above, the patient was placed on broad spectrum antibiotics for questionable healthcare associated pneumonia upon admission. She had a mild bump in creatinine initially while on vancomycin. Vancomycin was subsequently discontinued. However, following her cardiopulmonary arrest, creatinine jumped form 1.2 to as high as now 2.2. She also has significant drop in urine output. Dr. Zavala has been consulted and the patient is currently being maintained on Bumex drip. There are no plans today for any hemodialysis. The patient does have some significant underlying cirrhosis and anasarca, primarily of the skin. She has no underlying ascites at this time. The patient also has chronic cyanosis of the feet, which worsened following the code, but it now appears to be improving. Other chronic conditions remain stable and further hospital course will be dictated as an addendum. Dictated by... Elsie Velez M.D. TALAT/miracle TD: 02/05/2017 12:10 JOB #: [id number] TRANSFER OF CARE SUMMARY Page 1 of 1 X Elsie Velez MD TRANSFER OF CARE SUMMARY
[~2017-01-31 06:59] MED LIST changes: +ACIDOPHILUS1 CA1 PO; +BUMEX1 MG PO; +CARDIZEM CD120 M1 PO; +DULOXETINE HCL60 MG PO; +FLONASE ALLERG9.9 ML; +GAVILAX17 GM PO; +IPRAT-ALBUT 0.5-3 ML INH; +IPRATR-ALBUTEROL3 ML INH; +LANSOPRAZOLE30 M2 PO; +METHIMAZOLE5 MG PO; +MILK OF MAGNESIA PO; +MIRALAX17 G2 PO; +MIRAPEX1 MG PO; +MUPIROCIN0.9 GM; +NOVOLOG100 UNITS/ TL; +NYSTATIN1 EAC1 TD; +OMNICEF300 M1 PO; +SOTALOL160 MG PO; +SYMBICORT 80-10.2 GM INH; +VITAMIN D250000 UNIT PO
[2017-01-31 07:12] LABS: POC - CKMB 1.3 ng/mL (0.0-7.9); POC - TROPONIN <0.05 ng/mL (<=0.05)
[2017-01-31 07:38] LABS: BASOPHIL% 0.3 % (0-2.5); EOSINOPHIL# 0.1 X10e3 (0-0.7); EOSINOPHIL% 1.2 % (0.0-7.0); HEMATOCRIT 35.2 % (35.0-45.0); HEMOGLOBIN 11.1 gm/dL (12.0-16.0); LYMPHOCYTE# 0.6 X10e3 (1.0-3.5); LYMPHOCYTE% 11.1 % (17.0-45.0); MEAN CELL VOLUME 87.1 FL (83-96); MEAN CORPUSCULAR HEMOGLOBIN 27.5 PG (28-34); MEAN CORPUSCULAR HGB CONC 31.5 g/dL (30-36); MEAN PLATELET VOLUME 8.5 FL (6.5-11.5); MONOCYTE# 0.5 X10e3 (0-1.0); MONOCYTE% 8.2 % (3.0-12.0); NEUTROPHIL# 4.4 X10e3 (1.5-7.1); NEUTROPHIL% 79.2 % (40-75); PLATELET COUNT 140 X10e3 (140-420); RED BLOOD COUNT 4.04 X10e (3.90-5.30); RED CELL DISTRIBUTION WIDTH 16.4 % (11.0-15.5); WHITE BLOOD COUNT 5.5 X10e3 (4.0-10.5)
[2017-01-31 07:42] LABS: DIFF IND NO
[2017-01-31 07:48] LABS: INR 1.5; PROTHROMBIN TIME (PATIENT) 15.5 SECONDS (9.6-11.5)
[2017-01-31 08:01] LABS: ALBUMIN SERUM 3.4 g/dL (3.5-5.0); BILIRUBIN, DIRECT 0.1 mg/dL (0.0-0.2); BILIRUBIN,INDIRECT 0.7 mg/dL (0.0-0.9); BILIRUBIN,TOTAL 0.8 mg/dL (0.2-2.0); BUN/CREATININE RATIO 30.83; CREATININE SERUM 1.2 mg/dL (0.6-1.4); GLOM FILT RATE Estimated 43.3 mL/min (>60); POTASSIUM 4.2 mmol/L (3.5-5.1); PROTEIN TOTAL SERUM 6.2 g/dL (6.0-8.3)
[2017-02-01 16:31] LABS: ARTERIAL BLD GAS O2 SATURATION 93.7 % (90.0-100.0); ARTERIAL BLOOD GAS CARBOXY HB 1.1 %sat (0.0-9.0); ARTERIAL BLOOD GAS HCO3 27.5 mmol/L; ARTERIAL BLOOD GAS MET HB 1.1 %sat (0.0-2.0); ARTERIAL BLOOD GAS PCO2 47.8 mmHg (35.0-45.0); ARTERIAL BLOOD GAS pH 7.369 (7.350-7.450)
[2017-02-01 16:32] LABS: ARTERIAL BLOOD GAS ALLEN TEST NORMAL; ARTERIAL BLOOD GAS PO2 76.4 mmHg (80.0-100); ARTERIAL DRAW? YES
[2017-02-01 16:33] LABS: ARTERIAL BLOOD GAS ART SITE RIGHT RADIAL; ARTERIAL BLOOD GAS DELIVERY NASAL CANNULA
[2017-02-02 07:03] LABS: HEMATOCRIT 37.2 % (35.0-45.0); HEMOGLOBIN 11.7 gm/dL (12.0-16.0); MEAN CELL VOLUME 86.7 FL (83-96); MEAN CORPUSCULAR HEMOGLOBIN 27.3 PG (28-34); MEAN CORPUSCULAR HGB CONC 31.5 g/dL (30-36); MEAN PLATELET VOLUME 8.7 FL (6.5-11.5); RED BLOOD COUNT 4.29 X10e (3.90-5.30); RED CELL DISTRIBUTION WIDTH 16.2 % (11.0-15.5)
[2017-02-02 07:05] LABS: WHITE BLOOD COUNT 10.7 X10e3 (4.0-10.5)
[2017-02-02 07:41] LABS: ALBUMIN SERUM 3.2 g/dL (3.5-5.0); BILIRUBIN,TOTAL 0.8 mg/dL (0.2-2.0); BUN/CREATININE RATIO 28.46; CALCIUM SERUM 9.2 mg/dL (8.4-10.2); CREATININE SERUM 1.3 mg/dL (0.6-1.4); GLOM FILT RATE Estimated 39.3 mL/min (>60); POTASSIUM 4.4 mmol/L (3.5-5.1); PROTEIN TOTAL SERUM 5.9 g/dL (6.0-8.3)
[2017-02-03 02:58] LABS: ARTERIAL BLD GAS O2 SATURATION 85.8 % (90.0-100.0); ARTERIAL BLOOD GAS CARBOXY HB 0.4 %sat (0.0-9.0); ARTERIAL BLOOD GAS HCO3 18.6 mmol/L; ARTERIAL BLOOD GAS PCO2 49.5 mmHg (35.0-45.0); ARTERIAL BLOOD GAS pH 7.183 (7.350-7.450)
[2017-02-03 02:59] LABS: ARTERIAL BLOOD GAS ART SITE LEFT BRACHIAL; ARTERIAL BLOOD GAS DELIVERY VENT; ARTERIAL BLOOD GAS VENT MODE AC; ARTERIAL DRAW? YES
[2017-02-03 04:17] LABS: BASOPHIL% 0.3 % (0-2.5); DIFF IND NO; EOSINOPHIL# 0.1 X10e3 (0-0.7); EOSINOPHIL% 0.4 % (0.0-7.0); HEMATOCRIT 34.1 % (35.0-45.0); HEMOGLOBIN 10.5 gm/dL (12.0-16.0); LYMPHOCYTE% 7.2 % (17.0-45.0); MEAN CELL VOLUME 88.4 FL (83-96); MEAN CORPUSCULAR HEMOGLOBIN 27.2 PG (28-34); MEAN CORPUSCULAR HGB CONC 30.7 g/dL (30-36); MEAN PLATELET VOLUME 8.3 FL (6.5-11.5); MONOCYTE% 7.6 % (3.0-12.0); NEUTROPHIL# 11.5 X10e3 (1.5-7.1); NEUTROPHIL% 84.5 % (40-75); PLATELET COUNT 241 X10e3 (140-420); RED BLOOD COUNT 3.86 X10e (3.90-5.30); RED CELL DISTRIBUTION WIDTH 16.8 % (11.0-15.5); WHITE BLOOD COUNT 13.6 X10e3 (4.0-10.5)
[2017-02-03 04:28] LABS: BUN/CREATININE RATIO 25.29; CALCIUM SERUM 8.8 mg/dL (8.4-10.2); CREATININE SERUM 1.7 mg/dL (0.6-1.4); GLOM FILT RATE Estimated 28.4 mL/min (>60); POTASSIUM 4.3 mmol/L (3.5-5.1); PROTEIN TOTAL SERUM 5.9 g/dL (6.0-8.3)
[2017-02-03 04:29] LABS: ARTERIAL BLD GAS O2 SATURATION 94.3 % (90.0-100.0); ARTERIAL BLOOD GAS CARBOXY HB 0.6 %sat (0.0-9.0); ARTERIAL BLOOD GAS HCO3 21.3 mmol/L; ARTERIAL BLOOD GAS MET HB 0.7 %sat (0.0-2.0); ARTERIAL BLOOD GAS PCO2 38.3 mmHg (35.0-45.0); ARTERIAL BLOOD GAS PO2 80.4 mmHg (80.0-100); ARTERIAL BLOOD GAS pH 7.354 (7.350-7.450)
[2017-02-03 04:32] LABS: INR 1.9; PARTIAL THROMBOPLASTIN TIME 32.9 SECONDS (23.5-31.3); PROTHROMBIN TIME (PATIENT) 20.8 SECONDS (9.6-11.5)
[2017-02-03 04:33] LABS: ARTERIAL BLOOD GAS ALLEN TEST NORMAL; ARTERIAL BLOOD GAS ART SITE LEFT RADIAL; ARTERIAL BLOOD GAS DELIVERY VENT; ARTERIAL BLOOD GAS VENT MODE AC; ARTERIAL DRAW? YES
[2017-02-03 05:41] LABS: ARTERIAL BLD GAS O2 SATURATION 82.3 % (90.0-100.0); ARTERIAL BLOOD GAS CARBOXY HB 0.5 %sat (0.0-9.0); ARTERIAL BLOOD GAS HCO3 20.5 mmol/L; ARTERIAL BLOOD GAS MET HB 0.5 %sat (0.0-2.0); ARTERIAL BLOOD GAS PCO2 46.6 mmHg (35.0-45.0); ARTERIAL BLOOD GAS pH 7.251 (7.350-7.450)
[2017-02-03 05:42] LABS: ARTERIAL BLOOD GAS ALLEN TEST NORMAL; ARTERIAL BLOOD GAS ART SITE LEFT RADIAL; ARTERIAL BLOOD GAS DELIVERY VENT; ARTERIAL BLOOD GAS PO2 56.5 mmHg (80.0-100); ARTERIAL DRAW? YES
[2017-02-03 05:43] LABS: ARTERIAL BLOOD GAS VENT MODE AC
[2017-02-03 07:42] LABS: ARTERIAL BLOOD GAS CARBOXY HB 0.6 %sat (0.0-9.0); ARTERIAL BLOOD GAS HCO3 21.9 mmol/L; ARTERIAL BLOOD GAS MET HB 0.8 %sat (0.0-2.0); ARTERIAL BLOOD GAS PCO2 34.3 mmHg (35.0-45.0); ARTERIAL BLOOD GAS PO2 80.9 mmHg (80.0-100); ARTERIAL BLOOD GAS pH 7.414 (7.350-7.450)
[2017-02-03 07:43] LABS: ARTERIAL BLOOD GAS ART SITE RIGHT BRACHIAL; ARTERIAL BLOOD GAS DELIVERY VENT; ARTERIAL BLOOD GAS VENT MODE AC; ARTERIAL DRAW? YES
[2017-02-03 12:22] LABS: URINE APPEARANCE SL CLOUDY; URINE BLOOD 4+ (NEG); URINE COLOR YELLOW; URINE GLUCOSE 50 MG/DL (NORM); URINE KETONE NEG (NEG); URINE LEUKOCYTE ESTERASE 1+ (NEG); URINE NITRATE NEG (NEG); URINE PROTEIN 3+ (NEG); URINE UROBILINOGEN NORM (NORM)
[2017-02-03 12:30] LABS: URINE BILIRUBIN NEG (NEG)
[2017-02-03 12:35] LABS: URBCS1 AUWI 25-50 /[HPF] (0-2)
[2017-02-03 12:36] LABS: U HYALINE CASTS AUWI 0-2 /[LPF]; URINE BACTERIA AUWI 1+ (NEGATIVE); URINE SQUAMOUS EPITHELIAL CELL FEW /[HPF]
[2017-02-03 12:37] LABS: URINE AMORPHOUS SEDIMENT AMORP URATES
[2017-02-03 12:51] LABS: ARTERIAL BLD GAS O2 SATURATION 50.4 % (90.0-100.0); ARTERIAL BLOOD GAS CARBOXY HB 0.7 %sat (0.0-9.0); ARTERIAL BLOOD GAS HCO3 24.6 mmol/L; ARTERIAL BLOOD GAS MET HB 0.7 %sat (0.0-2.0); ARTERIAL BLOOD GAS PCO2 34.8 mmHg (35.0-45.0); ARTERIAL BLOOD GAS pH 7.457 (7.350-7.450)
[2017-02-03 12:52] LABS: ARTERIAL BLOOD GAS PO2 27.1 mmHg (80.0-100); ARTERIAL DRAW? NO
[2017-02-03 12:53] LABS: ARTERIAL BLOOD GAS DELIVERY VENT; ARTERIAL BLOOD GAS VENT MODE AC
[2017-02-03 14:53] LABS: BUN/CREATININE RATIO 24.21; CALCIUM SERUM 8.1 mg/dL (8.4-10.2); CREATININE SERUM 1.9 mg/dL (0.6-1.4); GLOM FILT RATE Estimated 24.8 mL/min (>60); POTASSIUM 3.6 mmol/L (3.5-5.1)
[2017-02-03 17:46] LABS: ARTERIAL BLD GAS O2 SATURATION 92.9 % (90.0-100.0); ARTERIAL BLOOD GAS ART SITE ARTERIAL LINE; ARTERIAL BLOOD GAS CARBOXY HB 0.7 %sat (0.0-9.0); ARTERIAL BLOOD GAS DELIVERY VENT; ARTERIAL BLOOD GAS HCO3 22.7 mmol/L; ARTERIAL BLOOD GAS MET HB 1.2 %sat (0.0-2.0); ARTERIAL BLOOD GAS PCO2 31.3 mmHg (35.0-45.0); ARTERIAL BLOOD GAS PO2 68.9 mmHg (80.0-100); ARTERIAL BLOOD GAS VENT MODE AC; ARTERIAL DRAW? YES
[2017-02-04 04:22] LABS: ARTERIAL BLD GAS O2 SATURATION 95.5 % (90.0-100.0); ARTERIAL BLOOD GAS CARBOXY HB 0.4 %sat (0.0-9.0); ARTERIAL BLOOD GAS MET HB 0.8 %sat (0.0-2.0); ARTERIAL BLOOD GAS PCO2 32.4 mmHg (35.0-45.0); ARTERIAL BLOOD GAS PO2 87.6 mmHg (80.0-100); ARTERIAL BLOOD GAS pH 7.421 (7.350-7.450)
[2017-02-04 04:39] LABS: ARTERIAL BLOOD GAS ART SITE ARTERIAL LINE; ARTERIAL BLOOD GAS DELIVERY VENT; ARTERIAL BLOOD GAS VENT MODE AC; ARTERIAL DRAW? YES
[2017-02-04 05:14] LABS: BASOPHIL% 0.2 % (0-2.5); EOSINOPHIL% 0.3 % (0.0-7.0); HEMATOCRIT 35.7 % (35.0-45.0); HEMOGLOBIN 11.2 gm/dL (12.0-16.0); LYMPHOCYTE# 0.6 X10e3 (1.0-3.5); MEAN CELL VOLUME 86.4 FL (83-96); MEAN CORPUSCULAR HEMOGLOBIN 27.1 PG (28-34); MEAN CORPUSCULAR HGB CONC 31.4 g/dL (30-36); MEAN PLATELET VOLUME 8.6 FL (6.5-11.5); MONOCYTE% 8.2 % (3.0-12.0); NEUTROPHIL# 10.6 X10e3 (1.5-7.1); NEUTROPHIL% 86.3 % (40-75); PLATELET COUNT 199 X10e3 (140-420); RED BLOOD COUNT 4.13 X10e (3.90-5.30); RED CELL DISTRIBUTION WIDTH 17.3 % (11.0-15.5); WHITE BLOOD COUNT 12.3 X10e3 (4.0-10.5)
[2017-02-04 05:18] LABS: DIFF IND NO
[2017-02-04 06:30] LABS: ALBUMIN SERUM 2.4 g/dL (3.5-5.0); BILIRUBIN,TOTAL 0.6 mg/dL (0.2-2.0); BUN/CREATININE RATIO 22.63; CALCIUM SERUM 8.2 mg/dL (8.4-10.2); CREATININE SERUM 1.9 mg/dL (0.6-1.4); GLOM FILT RATE Estimated 24.8 mL/min (>60); MAGNESIUM 1.8 mg/dL (1.6-3.0); PHOSPHOROUS 2.7 mg/dL (2.5-4.6); POTASSIUM 3.2 mmol/L (3.5-5.1); PROTEIN TOTAL SERUM 4.9 g/dL (6.0-8.3)
[2017-02-04 15:16] LABS: ARTERIAL BLD GAS O2 SATURATION 92.6 % (90.0-100.0); ARTERIAL BLOOD GAS CARBOXY HB 0.6 %sat (0.0-9.0); ARTERIAL BLOOD GAS HCO3 21.2 mmol/L; ARTERIAL BLOOD GAS MET HB 0.7 %sat (0.0-2.0); ARTERIAL BLOOD GAS PCO2 33.4 mmHg (35.0-45.0); ARTERIAL BLOOD GAS pH 7.411 (7.350-7.450)
[2017-02-04 15:17] LABS: ARTERIAL BLOOD GAS ALLEN TEST NORMAL; ARTERIAL BLOOD GAS ART SITE LEFT RADIAL; ARTERIAL DRAW? YES
[2017-02-04 15:18] LABS: ARTERIAL BLOOD GAS DELIVERY VENT; ARTERIAL BLOOD GAS VENT MODE A/C
[2017-02-05 04:14] LABS: ARTERIAL BLD GAS O2 SATURATION 89.4 % (90.0-100.0); ARTERIAL BLOOD GAS CARBOXY HB 0.6 %sat (0.0-9.0); ARTERIAL BLOOD GAS HCO3 21.6 mmol/L; ARTERIAL BLOOD GAS MET HB 0.7 %sat (0.0-2.0); ARTERIAL BLOOD GAS PCO2 35.9 mmHg (35.0-45.0); ARTERIAL BLOOD GAS pH 7.387 (7.350-7.450)
[2017-02-05 04:24] LABS: ARTERIAL BLOOD GAS ALLEN TEST NORMAL; ARTERIAL BLOOD GAS ART SITE RIGHT RADIAL; ARTERIAL BLOOD GAS DELIVERY VENT; ARTERIAL BLOOD GAS PO2 60.4 mmHg (80.0-100); ARTERIAL BLOOD GAS VENT MODE AC; ARTERIAL DRAW? YES
[2017-02-05 06:15] LABS: BASOPHIL% 0.4 % (0-2.5); EOSINOPHIL# 0.2 X10e3 (0-0.7); EOSINOPHIL% 2.2 % (0.0-7.0); HEMATOCRIT 34.4 % (35.0-45.0); HEMOGLOBIN 10.9 gm/dL (12.0-16.0); LYMPHOCYTE# 0.5 X10e3 (1.0-3.5); LYMPHOCYTE% 4.2 % (17.0-45.0); MEAN CELL VOLUME 85.1 FL (83-96); MEAN CORPUSCULAR HEMOGLOBIN 26.8 PG (28-34); MEAN CORPUSCULAR HGB CONC 31.5 g/dL (30-36); MEAN PLATELET VOLUME 8.1 FL (6.5-11.5); MONOCYTE# 0.9 X10e3 (0-1.0); MONOCYTE% 8.5 % (3.0-12.0); NEUTROPHIL# 9.4 X10e3 (1.5-7.1); NEUTROPHIL% 84.7 % (40-75); PLATELET COUNT 165 X10e3 (140-420); RED BLOOD COUNT 4.04 X10e (3.90-5.30); RED CELL DISTRIBUTION WIDTH 17.4 % (11.0-15.5); WHITE BLOOD COUNT 11.1 X10e3 (4.0-10.5)
[2017-02-05 06:25] LABS: DIFF IND NO
[2017-02-05 06:50] LABS: ALBUMIN SERUM 2.2 g/dL (3.5-5.0); BILIRUBIN,TOTAL 0.8 mg/dL (0.2-2.0); BUN/CREATININE RATIO 19.54; CALCIUM SERUM 7.9 mg/dL (8.4-10.2); CREATININE SERUM 2.2 mg/dL (0.6-1.4); GLOM FILT RATE Estimated 20.8 mL/min (>60); MAGNESIUM 1.7 mg/dL (1.6-3.0); PHOSPHOROUS 3.3 mg/dL (2.5-4.6); POTASSIUM 3.1 mmol/L (3.5-5.1); PROTEIN TOTAL SERUM 4.6 g/dL (6.0-8.3)
[2017-02-05 15:12] LABS: POTASSIUM 3.7 mmol/L (3.5-5.1)
[2017-02-06 04:38] LABS: ARTERIAL BLD GAS O2 SATURATION 98.1 % (90.0-100.0); ARTERIAL BLOOD GAS CARBOXY HB 0.5 %sat (0.0-9.0); ARTERIAL BLOOD GAS HCO3 22.2 mmol/L; ARTERIAL BLOOD GAS MET HB 0.7 %sat (0.0-2.0); ARTERIAL BLOOD GAS PCO2 37.9 mmHg (35.0-45.0); ARTERIAL BLOOD GAS pH 7.375 (7.350-7.450)
[2017-02-06 04:59] LABS: ARTERIAL BLOOD GAS ART SITE ARTERIAL LINE; ARTERIAL BLOOD GAS DELIVERY VENT; ARTERIAL DRAW? YES
[2017-02-06 05:00] LABS: ARTERIAL BLOOD GAS VENT MODE AC
[2017-02-06 05:50] LABS: BASOPHIL% 0.3 % (0-2.5); EOSINOPHIL# 0.2 X10e3 (0-0.7); EOSINOPHIL% 1.9 % (0.0-7.0); HEMATOCRIT 31.1 % (35.0-45.0); LYMPHOCYTE# 0.3 X10e3 (1.0-3.5); LYMPHOCYTE% 3.3 % (17.0-45.0); MEAN CELL VOLUME 85.8 FL (83-96); MEAN CORPUSCULAR HEMOGLOBIN 27.5 PG (28-34); MEAN PLATELET VOLUME 8.5 FL (6.5-11.5); MONOCYTE# 0.8 X10e3 (0-1.0); MONOCYTE% 8.6 % (3.0-12.0); NEUTROPHIL# 8.4 X10e3 (1.5-7.1); NEUTROPHIL% 85.9 % (40-75); PLATELET COUNT 119 X10e3 (140-420); RED BLOOD COUNT 3.63 X10e (3.90-5.30); RED CELL DISTRIBUTION WIDTH 17.2 % (11.0-15.5); WHITE BLOOD COUNT 9.7 X10e3 (4.0-10.5)
[2017-02-06 05:53] LABS: DIFF IND NO
[2017-02-06 06:46] LABS: BILIRUBIN,TOTAL 0.8 mg/dL (0.2-2.0); BUN/CREATININE RATIO 18.51; CALCIUM SERUM 8.2 mg/dL (8.4-10.2); CREATININE SERUM 2.7 mg/dL (0.6-1.4); GLOM FILT RATE Estimated 16.2 mL/min (>60); PHOSPHOROUS 3.4 mg/dL (2.5-4.6); POTASSIUM 3.9 mmol/L (3.5-5.1); PROTEIN TOTAL SERUM 4.2 g/dL (6.0-8.3)
[2017-02-07 04:39] LABS: ARTERIAL BLD GAS O2 SATURATION 97.8 % (90.0-100.0); ARTERIAL BLOOD GAS HCO3 21.9 mmol/L; ARTERIAL BLOOD GAS PCO2 39.2 mmHg (35.0-45.0); ARTERIAL BLOOD GAS PO2 91.5 mmHg (80.0-100); ARTERIAL BLOOD GAS pH 7.356 (7.350-7.450)
[2017-02-07 04:40] LABS: ARTERIAL BLOOD GAS ART SITE ARTERIAL LINE; ARTERIAL BLOOD GAS CARBOXY HB 0.9 %sat (0.0-9.0); ARTERIAL BLOOD GAS DELIVERY VENT; ARTERIAL BLOOD GAS MET HB 0.9 %sat (0.0-2.0); ARTERIAL BLOOD GAS VENT MODE AC; ARTERIAL DRAW? YES
[2017-02-07 06:10] LABS: BASOPHIL% 0.2 % (0-2.5); EOSINOPHIL# 0.1 X10e3 (0-0.7); EOSINOPHIL% 1.3 % (0.0-7.0); HEMATOCRIT 28.2 % (35.0-45.0); LYMPHOCYTE# 0.3 X10e3 (1.0-3.5); LYMPHOCYTE% 3.6 % (17.0-45.0); MEAN CELL VOLUME 85.6 FL (83-96); MEAN CORPUSCULAR HEMOGLOBIN 27.4 PG (28-34); MEAN PLATELET VOLUME 8.9 FL (6.5-11.5); MONOCYTE# 0.7 X10e3 (0-1.0); MONOCYTE% 8.7 % (3.0-12.0); NEUTROPHIL# 6.7 X10e3 (1.5-7.1); NEUTROPHIL% 86.2 % (40-75); RED CELL DISTRIBUTION WIDTH 17.4 % (11.0-15.5); WHITE BLOOD COUNT 7.8 X10e3 (4.0-10.5)
[2017-02-07 06:35] LABS: DIFF IND YES; PLATELET COUNT 87 X10e3 (140-420)
[2017-02-07 06:37] LABS: PLATELET ESTIMATE DECREASED (NORMAL); RBC NORMAL YES
[2017-02-07 07:11] LABS: ALBUMIN SERUM 1.7 g/dL (3.5-5.0); BILIRUBIN,TOTAL 0.8 mg/dL (0.2-2.0); BUN/CREATININE RATIO 22.5; CALCIUM SERUM 8.1 mg/dL (8.4-10.2); CREATININE SERUM 2.8 mg/dL (0.6-1.4); GLOM FILT RATE Estimated 15.5 mL/min (>60); MAGNESIUM 2.1 mg/dL (1.6-3.0); POTASSIUM 3.6 mmol/L (3.5-5.1); PROTEIN TOTAL SERUM 4.1 g/dL (6.0-8.3)
[2017-02-08 04:34] LABS: ARTERIAL BLD GAS O2 SATURATION 84.3 % (90.0-100.0); ARTERIAL BLOOD GAS CARBOXY HB 1.2 %sat (0.0-9.0); ARTERIAL BLOOD GAS HCO3 21.4 mmol/L; ARTERIAL BLOOD GAS MET HB 0.8 %sat (0.0-2.0); ARTERIAL BLOOD GAS PCO2 47.9 mmHg (35.0-45.0); ARTERIAL BLOOD GAS pH 7.259 (7.350-7.450)
[2017-02-08 04:40] LABS: ARTERIAL BLOOD GAS ALLEN TEST NORMAL; ARTERIAL BLOOD GAS ART SITE ARTERIAL LINE; ARTERIAL BLOOD GAS DELIVERY VENT; ARTERIAL BLOOD GAS PO2 55.7 mmHg (80.0-100); ARTERIAL BLOOD GAS VENT MODE A/C; ARTERIAL DRAW? YES
[2017-02-08 05:51] LABS: BASOPHIL% 0.3 % (0-2.5); EOSINOPHIL# 0.1 X10e3 (0-0.7); EOSINOPHIL% 0.7 % (0.0-7.0); HEMATOCRIT 33.3 % (35.0-45.0); HEMOGLOBIN 10.5 gm/dL (12.0-16.0); LYMPHOCYTE# 0.5 X10e3 (1.0-3.5); LYMPHOCYTE% 2.5 % (17.0-45.0); MEAN CELL VOLUME 85.6 FL (83-96); MEAN CORPUSCULAR HEMOGLOBIN 26.9 PG (28-34); MEAN CORPUSCULAR HGB CONC 31.4 g/dL (30-36); MEAN PLATELET VOLUME 9.1 FL (6.5-11.5); MONOCYTE# 1.4 X10e3 (0-1.0); MONOCYTE% 7.6 % (3.0-12.0); NEUTROPHIL# 16.1 X10e3 (1.5-7.1); NEUTROPHIL% 88.9 % (40-75); RED BLOOD COUNT 3.89 X10e (3.90-5.30); RED CELL DISTRIBUTION WIDTH 17.9 % (11.0-15.5)
[2017-02-08 05:56] LABS: DIFF IND YES; WHITE BLOOD COUNT 18.1 X10e3 (4.0-10.5)
[2017-02-08 05:58] LABS: ALBUMIN SERUM 1.9 g/dL (3.5-5.0); BILIRUBIN,TOTAL 0.7 mg/dL (0.2-2.0); BUN/CREATININE RATIO 23.12; CALCIUM SERUM 8.4 mg/dL (8.4-10.2); CREATININE SERUM 3.2 mg/dL (0.6-1.4); GLOM FILT RATE Estimated 13.2 mL/min (>60); POTASSIUM 3.8 mmol/L (3.5-5.1); PROTEIN TOTAL SERUM 4.9 g/dL (6.0-8.3)
[2017-02-08 07:36] LABS: ANISOCYTOSIS SL; PLATELET ESTIMATE DECREASED (NORMAL); ROULEAUX SLIGHT; TEAR DROP CELLS PRESENT
[2017-02-08 07:37] LABS: PLATELET COUNT 129 X10e3 (140-420)
== END 2017-02-08 17:07 | disposition expired | DRG 207 ==
LOC: CED 06:59 → CEDOF 09:30 → C5C 21:06 → CICCU3 02-03 03:14
PROVIDERS: Emergency Medicine; Internal Medicine; Internal Medicine Nephrology; Nurse Practitioner
PROC: 0BH17EZ Insertion of Endotracheal Airway into Trachea, Via Natural or Artificial Opening (ICD-10-PCS; principal; 2017-02-03)
PROC: 5A1955Z Respiratory Ventilation, Greater than 96 Consecutive Hours (ICD-10-PCS; 2017-02-03)
PROC: 0D9670Z Drainage of Stomach with Drainage Device, Via Natural or Artificial Opening (ICD-10-PCS; 2017-02-03)
PROC: 05HM33Z Insertion of Infusion Device into Right Internal Jugular Vein, Percutaneous Approach (ICD-10-PCS; 2017-02-03)
PROC: B543ZZA Ultrasonography of Right Jugular Veins, Guidance (ICD-10-PCS; 2017-02-03)
DX: J69.0 Pneumonitis due to inhalation of food and vomit (principal); N17.0 Acute kidney failure with tubular necrosis; R65.21 Severe sepsis with septic shock; I21.4 Non-ST elevation (NSTEMI) myocardial infarction; A41.9 Sepsis, unspecified organism; J96.21 Acute and chronic respiratory failure with hypoxia; E43 Unspecified severe protein-calorie malnutrition; I48.1 Persistent atrial fibrillation; D69.6 Thrombocytopenia, unspecified; I50.33 Acute on chronic diastolic (congestive) heart failure; E66.01 Morbid (severe) obesity due to excess calories; I36.1 Nonrheumatic tricuspid (valve) insufficiency; F03.90 Unspecified dementia, unspecified severity, without behavioral disturbance, psychotic disturbance, mood disturbance, and anxiety; Z95.0 Presence of cardiac pacemaker; I11.0 Hypertensive heart disease with heart failure; E78.5 Hyperlipidemia, unspecified; E11.9 Type 2 diabetes mellitus without complications; G47.33 Obstructive sleep apnea (adult) (pediatric); Z85.51 Personal history of malignant neoplasm of bladder; Z79.01 Long term (current) use of anticoagulants; Z90.49 Acquired absence of other specified parts of digestive tract; Z90.710 Acquired absence of both cervix and uterus; Z79.4 Long term (current) use of insulin; E03.9 Hypothyroidism, unspecified; K58.9 Irritable bowel syndrome, unspecified; K21.9 Gastro-esophageal reflux disease without esophagitis; Z88.2 Allergy status to sulfonamides; Z88.6 Allergy status to analgesic agent; Z91.041 Radiographic dye allergy status; I46.9 Cardiac arrest, cause unspecified; E87.6 Hypokalemia; K74.60 Unspecified cirrhosis of liver; Z68.37 Body mass index [BMI] 37.0-37.9, adult
CPT/HCPCS: 36415; 36600; 71010; 74000; 74230; 76770; 80048; 80053; 80061; 80076; 81003; 82550; 82553; 82803; 82947; 83605; 83735; 83880; 84100; 84132; 84300; 84443; 84484; 85025; 85027; 85384; 85610; 85730; 86850; 86870; 86885; 86900; 86901; 86922; 87040; 87070; 87077; 87086; 87186; 87205; 92610; 92611; 92950; 93005; 93306; 93970; 94002; 94003; 94640; 94664; 94760; 97163; 97166; 99285; C9113; G8978-GP; G8979-GP; G8980-GP; G8987-GO; G8988-GO; G8989-GO; G8996-GN; G8997-GN; J0282; J0692; J1160; J1325; J1650; J1815; J1940; J2020; J2060; J2250; J2270; J2543; J2760; J3010; J3260; J3370; J3475